=== PATIENT | female | born 1975 | race Caucasian/White ===

== ENCOUNTER → 2017-10-24 11:17 | Outpatient (CLI) | payer OTHER, SELFPAY ==
[2017-10-24 15:56] LABS: Hemoglobin 14.2 g/dl (12.0-15.0); Mean Corp Hgb Conc 34.6 g/gl (32-36); Mean Corpuscular Hgb 32.6 pg (27.0-32.0); Mean Corpuscular Volume 94.3 fL (81-99); Mean Platelet Vol. 12.8 fl (6.2-12.0); Platelet Count 167 K/mm3 (150-450); RBC Distribution Width SD 43.7 fl (35.1-43.9); Red Blood Count 4.35 M/mm3 (4.2-5.4); White Blood Count 5.9 K/mm3 (4.4-11.0)
[2017-10-24 16:12] LABS: Scan Indicated on CBC? Y/N NO
[2017-10-24 16:27] LABS: Vitamin B12 684 pg/mL (211-911)
[2017-10-24 17:30] LABS: ALB/GLOB Ratio 0.9 RATIO (0.9-2.4); AST(SGOT) 15 U/L (15-37); Alanine Aminotransfer ALT/SGPT 16 U/L (13-56); Albumin, Serum 3.8 g/dL (3.2-5.0); Alkaline Phosphatase 56 U/L (45-117); Anion Gap 14 (5-15); BUN 16 mg/dL (7-18); BUN/Creat Ratio 17.3 RATIO (10-20); Calcium,Total 9.3 mg/dL (8.5-10.1); Chloride 104 mmol/L (98-107); Creatinine, Serum 0.93 mg/dL (0.55-1.02); EST Glomerular Filtration Rate 71 mL/min (>60); Est Glom Filt Rate - Afr Amer 85 mL/min (>60); Ferritin 229 ng/mL (8-252); Globulin 4.1 g/dL (2.2-4.2); Glucose 70 mg/dL (74-106); Iron 71 ug/dL (50-170); Potassium 3.8 mmol/L (3.5-5.1); Protein, Total 7.9 g/dL (6.4-8.2); Sodium Level 141 mmol/L (136-145)
[2017-10-27 08:19] LABS: Zinc, Plasma or Serum 73 ug/dL (56-134)
== END ==
PROVIDERS: Family Provider Family Medicine; PCP Family Medicine
DX: K21.9 Gastro-esophageal reflux disease without esophagitis (principal); E61.7 Deficiency of multiple nutrient elements; E66.01 Morbid (severe) obesity due to excess calories
CPT/HCPCS: 36415; 80053; 82607; 82728; 82746; 83540; 83735; 84630; 85027

== ENCOUNTER → 2018-01-24 11:08 | Outpatient (CLI) | payer OTHER, SELFPAY ==
[2018-01-24 13:32] LABS: Hematocrit 41.8 % (37-47); Hemoglobin 14.1 g/dl (12.0-15.0); Mean Corp Hgb Conc 33.7 g/gl (32-36); Mean Corpuscular Hgb 31.9 pg (27.0-32.0); Mean Corpuscular Volume 94.6 fL (81-99); Mean Platelet Vol. 11.8 fl (6.2-12.0); Platelet Count 185 K/mm3 (150-450); RBC Distribution Width CV 12.3 % (11.6-14.6); RBC Distribution Width SD 42.3 fl (35.1-43.9); Red Blood Count 4.42 M/mm3 (4.2-5.4); Scan Indicated on CBC? Y/N NO; White Blood Count 6.6 K/mm3 (4.4-11.0)
[2018-01-24 13:46] LABS: Vitamin B12 689 pg/mL (211-911)
[2018-01-24 13:51] LABS: ALB/GLOB Ratio 0.9 RATIO (0.9-2.4); AST(SGOT) 19 U/L (15-37); Alanine Aminotransfer ALT/SGPT 19 U/L (13-56); Albumin, Serum 3.7 g/dL (3.2-5.0); Alkaline Phosphatase 59 U/L (45-117); Anion Gap 10 (5-15); BUN 17 mg/dL (7-18); Calcium,Total 9.3 mg/dL (8.5-10.1); Chloride 103 mmol/L (98-107); EST Glomerular Filtration Rate 64 mL/min (>60); Est Glom Filt Rate - Afr Amer 78 mL/min (>60); Globulin 4.2 g/dL (2.2-4.2); Glucose 67 mg/dL (74-106); Iron 77 ug/dL (50-170); Magnesium 2.1 mg/dL (1.6-2.6); Potassium 4.1 mmol/L (3.5-5.1); Protein, Total 7.9 g/dL (6.4-8.2); Sodium Level 140 mmol/L (136-145)
[2018-01-26 07:39] LABS: Zinc, WHOLE BLOOD 649 ug/dL (440-860)
--- OUTSIDE RECORDS SUMMARY | 2018-03-12 12:09 | XMS RPT_ITS ---
:1975 Author Organization OHIP Support Name Relationship Address Phone Farrah Schuster Unavailable Unavailable + [employer] brand Unavailable Unavailable + COW Unavailable [address] + [place] [address] JAIR DIXON Unavailable [address] + [place] [address] LandenWalkerFarrah Unavailable Unavailable + SchenKashJair Unavailable Unavailable + Landen Farrah Unavailable Unavailable + SchenKashJair Unavailable Unavailable + COW Unavailable [address] + [place] [address] SCHENKASHJAIR Unavailable [address] + [place] [address] LandenWalkerFarrah Unavailable Unavailable + SchenKashJair Unavailable Unavailable + Landen Farrah Unavailable Unavailable + Schen Jair Unavailable Unavailable + Landen Farrah Unavailable Unavailable + SchenKashJair Unavailable Unavailable + Landen Farrah Unavailable Unavailable + Schen Jair Unavailable Unavailable + Walker Schusteristi Unavailable Unavailable + Schen Jair Unavailable Unavailable + Walker Schusteristi Unavailable Unavailable + Schen, Jair Unavailable Unavailable + Landen, Farrah Unavailable Unavailable + Schen, Jair Unavailable Unavailable + Landen, Farrah Unavailable Unavailable + Schen, Jair Unavailable Unavailable + Landen, Farrah Unavailable Unavailable + Schen, Jair Unavailable Unavailable + Landen, Farrah Unavailable Unavailable + Schen, Jair Unavailable Unavailable + Landen, Farrah Unavailable Unavailable + Schen, Jair Unavailable Unavailable + Landen, Farrah Unavailable Unavailable + Schen, Jair Unavailable Unavailable + Landen, Farrah Unavailable Unavailable + Schen, Jair Unavailable Unavailable + Landen, Farrah Unavailable Unavailable + Schen, Jair Unavailable Unavailable + Landen, Farrah Unavailable Unavailable + Schen, Jair Unavailable Unavailable + Landen, Farrah Unavailable Unavailable + Schen, Jair Unavailable Unavailable + Landen, Farrah Unavailable Unavailable + Schen, Jair Unavailable Unavailable + Landen, Farrah Unavailable Unavailable + Schen, Jair Unavailable Unavailable + Care Team Providers Name Role Phone RODOLFO BARTLETT Referring Unavailable RODOLFO BARTLETT Attending Unavailable RODOLFO BARTLETT Referring Unavailable Cedric Up Attending Unavailable PROVIDER, UNKNOWN Referring Unavailable Ke Clark Primary Care Unavailable Cedric Up Attending Unavailable PROVIDER, UNKNOWN Referring Unavailable Ke Clark Primary Care Unavailable Cedric Up Attending Unavailable PROVIDER, UNKNOWN Referring Unavailable Ke Clark Primary Care Unavailable Anthony Cuadra Attending Unavailable PROVIDER, UNKNOWN Referring Unavailable Eduardo, Ke Primary Care Unavailable Cedric Up Attending Unavailable PROVIDER, UNKNOWN Referring Unavailable Eduardo, Ke Primary Care Unavailable Cedric Up Attending Unavailable PROVIDER, UNKNOWN Referring Unavailable Eduardo, Ke Primary Care Unavailable PROVIDER, UNKNOWN Referring Unavailable Eduardo, Ke Primary Care Unavailable Guillermina Way Attending Unavailable Rumsuzette, Darlin Attending Unavailable PROVIDER, UNKNOWN Referring Unavailable Eduardo, Ke Primary Care Unavailable Rumkvngl, Darlin Attending Unavailable PROVIDER, UNKNOWN Referring Unavailable Eduardo, Ke Primary Care Unavailable PROVIDER, UNKNOWN Referring Unavailable Eduardo, Ke Primary Care Unavailable Anthony Cuadra Attending Unavailable JACKELIN MURILLO RLiz Attending Unavailable PROVIDER, UNKNOWN Referring Unavailable Eduardo, Ke Primary Care Unavailable Cedric Up Attending Unavailable PROVIDER, UNKNOWN Referring Unavailable Eduardo, Ke Primary Care Unavailable CuadraAnthony higginbotham Attending Unavailable PROVIDER, UNKNOWN Referring Unavailable Eduardo, Ke Primary Care Unavailable CuadraAnthony higginbotham Attending Unavailable PROVIDER, UNKNOWN Referring Unavailable Eduardo, Ke Primary Care Unavailable CuadraAnthony higginbotham Attending Unavailable PROVIDER, UNKNOWN Referring Unavailable Eduardo, Ke Primary Care Unavailable CuadraAnthony higginbotham Attending Unavailable PROVIDER, UNKNOWN Referring Unavailable Eduardo, Ke Primary Care Unavailable CuadraAnthony higginbotham Attending Unavailable PROVIDER, UNKNOWN Referring Unavailable Eduardo, Ke Primary Care Unavailable Anthony Cuadra Attending Unavailable PROVIDER, UNKNOWN Referring Unavailable Eduardo, Ke Primary Care Unavailable Darlin Moses Attending Unavailable PROVIDER, UNKNOWN Referring Unavailable Eduardo, Ke Primary Care Unavailable JACKELIN MURILLO Attending Unavailable PROVIDER, UNKNOWN Referring Unavailable Eduardo, Ke Primary Care Unavailable PROVIDER, UNKNOWN Referring Unavailable Eduardo, Ke Primary Care Unavailable Guillermina Way Attending Unavailable Eduardo, Ke Primary Care Unavailable Suzette Murilloa PHARMACY BENEFIT MANAGER-C Attending Unavailable Jackelin Murillo PHARMACY BENEFIT MANAGER-C Referring Unavailable Eduardo, Ke Primary Care Unavailable QUAN SOL Attending Unavailable QUAN SOL Referring Unavailable PROBLEMS PROBLEMS DATE TYPE CONDITION / CODE ATTENDING STATUS SOURCE 01/31/2018 Admitting Morbid (severe) Seamus Guillermina [facility] Diagnosis obesity due to System excess calories / Repository E66.01(ICD-10) 01/31/2018 Admitting Gastro-esophageal Seamus Guillermina [facility] Diagnosis reflux disease System without esophagitis Repository / K21.9(ICD-10) 01/31/2018 Admitting Shortness of breath [facility] Diagnosis / R06.02(ICD-10) System Repository 01/31/[address] 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 System elements / Repository E61.7(ICD-10) 01/31/[address] Admitting Bariatric surgery [address] [facility] status / System Z98.84(ICD-10) Repository 01/31/2018 Admitting Body mass index [address]ill[address] [facility] Diagnosis (BMI) 31.0-31.9, System adult / Repository Z68.31(ICD-10) 02/08/2018 Unknown K21.9 - Jackelin Murillo Active [facility] PHARMACY BENEFIT MANAGER-C [facility] reflux disease [facility] without esophagitis Repository / K21.9(ICD-10) 11/04/2017 Admitting Eating disorder, Crysmell, Active [facility] Diagnosis unspecified / Darlin System F50.9(ICD-10) Repository 11/02/2017 Admitting Body mass index Cuadra, Active [facility] Diagnosis (BMI) 35.0-35.9, [facility] adult / Repository Z68.35(ICD-10) 10/25/2017 Unknown E61.7 - Deficiency QUAN SOL Active [place] of multiple Community nutrient elements / Hospital E61.7(ICD-10) Repository 10/25/2017 Unknown E66.01 - Morbid QUAN SOL Active [facility] (severe) obesity Community due to excess Hospital calories / Repository E66.01(ICD-10) 10/11/2017 Active Unknown / RODOLFO BARTLETT Active [place] [facility](Unknown) [facility] [place] Repository 10/11/2017 Active Encounter for NA Active [place] screening mammogram Clinic Main for malignant [place] neoplasm of breast Repository / Z12.31(ICD-10) 09/28/2017 Admitting Body mass index Cuadra, [facility] Diagnosis (BMI) 38.0-38.9, [facility] adult / Repository Z68.38(ICD-10) 09/20/2017 Admitting Unspecified asthma, Cuadra, [facility] Diagnosis uncomplicated / [facility] J45.909(ICD-10) Repository 09/20/2017 Admitting Irritable bowel Cuadra, Active [facility] Diagnosis syndrome without [facility] diarrhea / Repository K58.9(ICD-10) 09/20/2017 Admitting Body mass index Cuadra, Active [facility] Diagnosis (BMI) 39.0-39.9, [facility] adult / Repository Z68.39(ICD-10) 09/20/2017 Admitting Fatty (change of) Cuadra, Active [facility] Diagnosis liver, not [facility] elsewhere Repository classified / K76.0(ICD-10) 09/13/2017 Admitting Encounter for other Cuadra, Active [facility] Diagnosis preprocedural [facility] examination / Repository Z01.818(ICD-10) 08/31/2017 Admitting Encounter for BRIDLE, JACKELIN Active [facility] Diagnosis screening for R. System diabetes mellitus / Repository Z13.1(ICD-10) 08/31/2017 Admitting Prediabetes / BRIDLE, JACKELIN Active [facility] Diagnosis R73.03(ICD-10) R. System Repository 05/18/2017 Admitting Body mass index Guillermina Way Active [facility] Diagnosis (BMI) 40.0-44.9, System adult / Repository Z68.41(ICD-10) 04/06/2017 Admitting Diaphragmatic BRIDLE, JACKELIN Active [facility] Diagnosis hernia without R. System obstruction or Repository gangrene / K44.9(ICD-10) 04/06/2017 Admitting Dvrtclos of sm int BRIDLE, JACKELIN Active [facility] Diagnosis w/o perforation or R. System abscess w/o Repository bleeding / K57.10(ICD-10) 04/06/2017 Admitting Splenomegaly, not BRIDLE, JACKELIN Active [facility] Diagnosis elsewhere R. System classified / Repository R16.1(ICD-10) 04/06/2017 Admitting Heartburn / BRIDLE, JACKELIN Active [facility] Diagnosis R12(ICD-10) R. System Repository 04/06/2017 Admitting Epigastric pain / BRIDLE, JACKELIN Active [facility] Diagnosis R10.13(ICD-10) R. 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 / [facility] K30(ICD-10) Repository 03/11/2017 Admitting Snoring / Cuadra, Active [facility] Diagnosis R06.83(ICD-10) [facility] Repository PROCEDURES PROCEDURES No Procedure Records FoundRESULTS RESULTS CBC-COMPLETE BLOOD CNT Collected: 01/24/2018 Status: F Source: [place] NO DIFF 11:10 AM [facility] REPOSITORY TYPE CODE TESTS RESULT OUT OF RANGE REFERENCE UNITS LAB L100.1000 4.4-11.0 K/mm3 Normal WBC 6.6 LAB L100.1200 4.2-5.4 M/mm3 Normal RBC 4.42 LAB L100.1300 12.0-15.0 g/dl Normal HGB 14.1 LAB L100.1400 37-47 % Normal HCT 41.8 LAB L100.1500 81-99 fL Normal MCV 94.6 LAB L100.1600 27.0-32.0 pg Normal MCH 31.9 LAB L100.1700 32-36 g/gl Normal MCHC 33.7 LAB L100.1810 11.6-14.6 % Normal RDW CV 12.3 LAB L100.1820 35.1-43.9 fl Normal RDW SD 42.3 LAB L100.1900 150-450 K/mm3 Normal PLT 185 LAB L100.2000 6.2-12.0 fl Normal MPV 11.8 Performed By: #### L100.0500 #### [facility] [address] [place], [address] VITAMIN B12 Collected: 01/24/2018 Status: F Source: [place] 11:10 AM [facility] REPOSITORY TYPE CODE TESTS RESULT OUT OF RANGE REFERENCE UNITS LAB L503.0105 211-911 pg/mL Normal Vitamin B12 689 Performed By: #### L503.0105 #### [facility] [address] [facility] [place], [address] COMPREHENSIVE METABOLIC Collected: 01/24/2018 Status: F Source: [place] PROFIL 11:10 AM [facility] REPOSITORY Order Comment: Is Patient Taking Vitamins or Folic Acid Supplements? Y TYPE CODE TESTS RESULT OUT OF RANGE REFERENCE UNITS LAB L501.0100 74-106 mg/dL Low GLU 67 Result Comment: Please note revised GLUCOSE reference range effective 2017. LAB L501.1000 7-18 mg/dL Normal BUN 17 LAB L501.1100 0.55-1.02 mg/dL Normal CREAT,SERUM 1.00 Result Comment: The validity of the calculated GFR AND GFRAA in patients over 70 years has not been determined. Clinical correlation is essential. LAB L501.1110 >60 mL/min Normal EST GFR 64 Result Comment: Non- GFR Calc LAB L501.1115 >60 mL/min Normal EST GFR - AA 78 Result Comment: GFR Calc LAB L501.1300 10-20 RATIO Normal BUN/CRE 17.0 LAB L501.1500 6.4-8.2 g/dL T Normal PROT 7.9 LAB L501.1800 3.2-5.0 g/dL Normal ALB 3.7 LAB L501.1950 2.2-4.2 g/dL Normal GLOB 4.2 LAB L501.2000 0.9-2.4 RATIO Normal A/G 0.9 LAB L501.2200 8.5-10.1 mg/dL CA Normal 9.3 LAB L501.4100 15-37 U/L Normal AST 19 LAB L501.4305 45-117 U/L Normal ALK P 59 LAB L501.4405 13-56 U/L Normal ALT 19 LAB L501.4600 0.20-1.00 mg/dL T Normal BILI 0.40 LAB L501.5300 136-145 mmol/L NA Normal 140 LAB L501.5600 3.5-5.1 mmol/L K Normal 4.1 LAB L501.5900 98-107 mmol/L CL Normal 103 LAB L501.6100 21.0-32.0 mmol/L Normal CO2 27.0 LAB L501.6200 5-15 Normal GAP 10 Performed By: #### L500.4050, L501.5200, L503.6150, L506.0250 #### [facility] [address] [place], [place], [address] MAGNESIUM Collected: 01/24/2018 Status: F Source: [place] 11:10 AM [facility] REPOSITORY Order Comment: Is Patient Taking Vitamins or Folic Acid Supplements? Y TYPE CODE TESTS RESULT OUT OF RANGE REFERENCE UNITS LAB L501.5200 1.6-2.6 mg/dL Normal MG 2.1 Performed By: #### L500.4050, L501.5200, L503.6150, L506.0250 #### [facility] [address] [place], [address] IRON Collected: 01/24/2018 Status: F Source: [place] 11:10 AM [facility] REPOSITORY Order Comment: Is Patient Taking Vitamins or Folic Acid Supplements? Y TYPE CODE TESTS RESULT OUT OF RANGE REFERENCE UNITS LAB L503.6150 50-170 ug/dL Normal IRON 77 Performed By: #### L500.4050, L501.5200, L503.6150, L506.0250 #### [facility] [address] [place], [address] FOLATES, (FOLIC ACID) Collected: 01/24/2018 Status: F Source: [place] 11:10 AM [facility] REPOSITORY Order Comment: Is Patient Taking Vitamins or Folic Acid Supplements? Y TYPE CODE TESTS RESULT OUT OF RANGE REFERENCE UNITS LAB L506.0250 3.1-55.4 ng/mL Normal FOLATES 20.00 Result Comment: Slight Hemolysis, Result may be falsely increased. Performed By: #### L500.4050, L501.5200, L503.6150, L506.0250 #### [facility] [address] [place], [address] ZINC, WHOLE BLOOD Collected: 01/24/2018 Status: F Source: [place] 11:10 AM [facility] REPOSITORY TYPE CODE TESTS RESULT OUT OF RANGE REFERENCE UNITS LAB L3300.9910 440-860 ug/dL Normal ZINC 649 WHOLE BLD Result Comment: Performed at: - [facility] [address] [id number] Seniour Insight Manager: Jono Pereira MD, Phone: [phone] Performed By: #### L3300.9910 #### [facility] (refer to report for specific site) refer to report for address and phone number CBC-COMPLETE BLOOD CNT Collected: 10/24/2017 Status: F Source: [place] NO DIFF 11:21 AM [facility] REPOSITORY TYPE CODE TESTS RESULT OUT OF RANGE REFERENCE UNITS LAB L100.1000 4.4-11.0 K/mm3 Normal WBC 5.9 LAB L100.1200 4.2-5.4 M/mm3 Normal RBC 4.35 LAB L100.1300 12.0-15.0 g/dl Normal HGB 14.2 LAB L100.1400 37-47 % Normal HCT 41.0 LAB L100.1500 81-99 fL Normal MCV 94.3 LAB L100.1600 27.0-32.0 pg High MCH 32.6 LAB L100.1700 32-36 g/gl Normal MCHC 34.6 LAB L100.1810 11.6-14.6 % Normal RDW CV 13.0 LAB L100.1820 35.1-43.9 fl Normal RDW SD 43.7 LAB L100.1900 150-450 K/mm3 Normal PLT 167 LAB L100.2000 6.2-12.0 fl High MPV 12.8 Performed By: #### L100.0500 #### [facility] [address] [facility] [place], [address] VITAMIN B12 Collected: 10/24/2017 Status: F Source: [place] 11:21 AM [facility] REPOSITORY TYPE CODE TESTS RESULT OUT OF RANGE REFERENCE UNITS LAB L503.0105 211-911 pg/mL Normal Vitamin B12 684 Performed By: #### L503.0105 #### [facility] [address] [facility] [place], [address] COMPREHENSIVE METABOLIC Collected: 10/24/2017 Status: F Source: [facility] 11:21 AM [facility] REPOSITORY Order Comment: Is Patient Taking Vitamins or Folic Acid Supplements? Y TYPE CODE TESTS RESULT OUT OF RANGE REFERENCE UNITS LAB L501.0100 74-106 mg/dL Low GLU 70 Result Comment: Please note revised GLUCOSE reference range effective 2017. LAB L501.1000 7-18 mg/dL Normal BUN 16 LAB L501.1100 0.55-1.02 mg/dL Normal CREAT,SERUM 0.93 Result Comment: The validity of the calculated GFR AND GFRAA in patients over 70 years has not been determined. Clinical correlation is essential. LAB L501.1110 >60 mL/min Normal EST GFR 71 Result Comment: Non- GFR Calc LAB L501.1115 >60 mL/min Normal EST GFR - AA 85 Result Comment: GFR Calc LAB L501.1300 10-20 RATIO Normal BUN/CRE 17.3 LAB L501.1500 6.4-8.2 g/dL T Normal PROT 7.9 LAB L501.1800 3.2-5.0 g/dL Normal ALB 3.8 LAB L501.1950 2.2-4.2 g/dL Normal GLOB 4.1 LAB L501.2000 0.9-2.4 RATIO Normal A/G 0.9 LAB L501.2200 8.5-10.1 mg/dL CA Normal 9.3 LAB L501.4100 15-37 U/L Normal AST 15 LAB L501.4305 45-117 U/L Normal ALK P 56 LAB L501.4405 13-56 U/L Normal ALT 16 LAB L501.4600 0.20-1.00 mg/dL T Normal BILI 0.40 LAB L501.5300 136-145 mmol/L NA Normal 141 LAB L501.5600 3.5-5.1 mmol/L K Normal 3.8 LAB L501.5900 98-107 mmol/L CL Normal 104 LAB L501.6100 21.0-32.0 mmol/L Normal CO2 23.0 LAB L501.6200 5-15 Normal GAP 14 Performed By: #### L500.4050, L501.5200, L503.6150, L503.6550, L506.0250 #### [facility] [address] [facility] [place], [place], [id number] MAGNESIUM Collected: 10/24/2017 Status: F Source: [place] 11:21 AM [facility] REPOSITORY Order Comment: Is Patient Taking Vitamins or Folic Acid Supplements? Y TYPE CODE TESTS RESULT OUT OF RANGE REFERENCE UNITS LAB L501.5200 1.6-2.6 mg/dL Normal MG 2.0 Performed By: #### L500.4050, L501.5200, L503.6150, L503.6550, L506.0250 #### [facility] [address] [facility] [place], [place], [address] IRON Collected: 10/24/2017 Status: F Source: [place] 11:21 AM [facility] REPOSITORY Order Comment: Is Patient Taking Vitamins or Folic Acid Supplements? Y TYPE CODE TESTS RESULT OUT OF RANGE REFERENCE UNITS LAB L503.6150 50-170 ug/dL Normal IRON 71 Performed By: #### L500.4050, L501.5200, L503.6150, L503.6550, L506.0250 #### [facility] [address] [place], [place], [address] ([address]) FERRITIN Collected: 10/24/2017 Status: F Source: [place] 11:21 AM [facility] REPOSITORY Order Comment: Is Patient Taking Vitamins or Folic Acid Supplements? Y TYPE CODE TESTS RESULT OUT OF RANGE REFERENCE UNITS LAB L503.6550 8-252 ng/mL Normal FERRITIN 229 Performed By: #### L500.4050, L501.5200, L503.6150, L503.6550, L506.0250 #### [facility] [address] [place], [address] FOLATES, (FOLIC ACID) Collected: 10/24/2017 Status: F Source: [place] 11:21 AM [facility] REPOSITORY Order Comment: Is Patient Taking Vitamins or Folic Acid Supplements? Y TYPE CODE TESTS RESULT OUT OF RANGE REFERENCE UNITS LAB L506.0250 3.1-55.4 ng/mL Normal FOLATES 24.90 Performed By: #### L500.4050, L501.5200, L503.6150, L503.6550, L506.0250 #### [facility] [address] [place], [place], [address] ZINC, PLASMA OR Collected: 10/24/2017 Status: F Source: [place] 11:21 AM [facility] REPOSITORY Order Comment: FAX TO [id number] TYPE CODE TESTS RESULT OUT OF RANGE REFERENCE UNITS LAB L3300.9900 56-134 ug/dL Normal ZINC 73 Plasma/Ser Result Comment: Detection Limit = 5 Performed at: - [facility] [address] [id number] [employer] Insight Manager: Kaela Bell MD, Phone: [phone] Performed By: #### L3300.9900 #### [facility] (refer to report for specific site) refer to report for address and phone number CNOV Observed: 10/11/2017 Status: COMPLETED Source: [place] 9:20 AM [facility] [place] REPOSITORY Office Visit (WOOB) HAILEE DIXON ([id number]) 1975 F Date Time Provider Department 10/11/17 9:20 AM RODOLFO BARTLETT During your visit today, we recorded the following information about you: Blood pressure Weight Height 104/66 113.7 kg 1.76 m Rodolfo Bartlett MD 10/11/2017 10:00 AM Signed Hailee Dixon is a 42 year old who presents for her annual gynecologic exam without complaints. Menses: no menses - continuous OCPs. Contraception: oral contraceptives HPV vaccine: N/A Last Pap: 2014 normal HPV: negative History of abnormal pap: No Last mammogram: today Obstetric History T0 L0 SAB0 TAB0 Ectopic0 Multiple0 Live Births0 PAST MEDICAL HISTORY Diagnosis Date - Allergic rhinitis, cause unspecified Allergic rhinitis - Asthma - IBS (irritable bowel syndrome) PAST SURGICAL HISTORY Procedure Laterality Date - TONSILLECTOMY AND ADENOIDECTOMY HX 1984 FAMILY HISTORY Problem Relation Age of Onset - Cancer Mother T-Cell Lymphoma - Arthritis Father - Diabetes Maternal Grandmother - Thyroid Sister Hypothyroidism - other (Depression/Anxiety) Sister - Diabetes Maternal Uncle SOCIAL HISTORY Social History Substance Use Topics - Smoking status: Never Smoker - Smokeless tobacco: Never Used - Alcohol use Yes Comment: Occasionally REVIEW OF SYSTEMS Abdomen: No abdominal pain, nausea, vomiting, diarrhea, or constipation. No bloating, early satiety, indigestion, or increased flatulence. Bladder: No dysuria, gross hematuria, urinary frequency, urinary urgency, or incontinence. Breast: No breast lumps, nipple d/c, overlying skin changes, redness or skin retraction. Allergies and current medication updated:Yes EXAM: There were no vitals taken for this visit. GENERAL: pleasant, female in no apparent distress BREAST: soft, non-tender, symmetric, no dominant mass, normal nipple-areolar complex, no lymphadenopathy and no nipple discharge CHEST: Normal inspiratory effort ABDOMEN: soft, non-tender and no masses PELVIC: external genitalia normal, normal Bartholin's glands, urethra, [place]'s glands, no vulvar lesions, no cervical lesions, good vaginal support, physiologic discharge present, normal appearing perineal body and perianal region BIMANUAL: uterus normal size, shape and consistency, no adnexal masses and non-tender RECTOVAGINAL: deferred. NEURO: alert and oriented x3,exam grossly non-focal EXTREMITIES: normal ASSESSMENT/PLAN: 1) Health maintenance: Pap/HPV up to date. Mammogram today Nutrition, exercise and routine health maintenance exams reviewed. 2) Contraception: oral contraceptives - reviewed R/B/A in women over 35 including increased CV/stroke risks 3) Follow up one year or sooner as needed Rodolfo Bartlett MD Referring Provider: RODOLFO BARTLETT [[id number]] Allergies As of Date: 10/11/2017 Noted Allergy Reaction SEASONAL ALLERGIES 08/28/2014 9 - Itching 12 - Shortness of Breath Comments: Dust mites, Dogs, Cats, Tree's, and Grasses. Date Reviewed: 10/11/2017 Reviewed by: Rodolfo Bartlett - Fully Assessed Reason for Visit: Yearly Exam [187] Primary Visit Diagnosis:Encounter for gynecological examination without abnormal finding [Z01.419] Other Visit Diagnosis:Encounter for screening mammogram for malignant neoplasm of breast [Z12.31] Order(s):[facility] SCREENING [[id number]] Order #: [id number] FUTURE Drospirenone-Ethinyl Estradiol (ALEK, 28,) 3-0.02 mg per tabletTake 1 tablet by mouth once daily.Disp: 1 PackageRfl: 14 Prescriptions as of 10/11/2017 Sig: ACTIGALL ORAL Take by mouth. PRILOSEC ORAL Take by mouth. VITAMIN B-12 ORAL Take by mouth. Once weekly CALCIUM ORAL Take by mouth. DROSPIRENONE 3 MG-ETHINYL EST* Take 1 tablet by mouth once d* BIOTIN ORAL Take by mouth. FLAXSEED OIL 1,000 MG CAPSULE Take by mouth once daily. FLUTICASONE 100 MCG-SALMETERO* Inhale 1 Puff as instructed t* NASONEX NASAL Use in the nose. PROAIR HFA INHALATION Inhale as instructed. DICYCLOMINE 10 MG CAPSULE Take 10 mg by mouth before me* CETIRIZINE 10 MG TABLET Take 10 mg by mouth as needed. MULTIVITAMIN ORAL Take by mouth. CHOLECALCIFEROL (VITAMIN D3) * Take by mouth. Problem List As Of Date 10/11/2017 Noted Resolved Galactorrhea [N64.3] INVALID FOR* Prescriptions ordered this encounter Disp Refills Start End DROSPIRENONE 3 MG-ETHINYL ESTRADIOL * 1 Pa* 14 10/11/2017 Route: ORAL Sig: Take 1 tablet by mouth once daily. Medications Discontinued During This Encounter Phentermine HCl (ADIPEX-P) 37.5 mg t* 10/11/2017 Class: Historical Med Route: ORAL Sig: Take 37.5 mg by mouth. Disc: Discontinued by Patient Drospirenone-Ethinyl Estradiol (ALEK,* 1 Pa* 14 09/24/2016 10/11/2017 Route: ORAL Sig: Take 1 tablet by mouth once daily. Disc: Reason for discontinue is not on file. Disposition: Return in about 1 year (around 10/11/2018) for Routine KEYBOARD TEACHER exam. Follow-up and Disposition History Recorded Encounter Status:Closed by RODOLFO BARTLETT MD on 10/11/17 CNCO Observed: 10/11/2017 Status: COMPLETED Source: [place] 9:18 AM [facility] [place] REPOSITORY [facility] ID: [id number] Author: Mammography Coordinator Service: (none) Author Type: Physician Type: Letter Filed: 10/12/2017 11:31 PM Note Text: October 11, 2017 PID: [id number] Hailee Dixon [address] [place] [address] Dear Ms. Dixon, We are pleased to inform you that the results of your recent breast imaging exam on 10/11/2017 are normal. Early detection of cancer is very important. We also understand recommendations regarding breast cancer screening are controversial. Please discuss with your primary care provider which strategy is best for you and whether a mammogram is right for you. Your imaging studies and report will be kept on file at [facility] as part of your permanent medical record and are available for your continuing care. Thank you for allowing us to help in meeting your health care needs. Sincerely, Dr. Goodwin Interpreting Radiologist [facility] (Normal over 40) [facility] SCREENING Observed: 10/11/2017 Status: F Source: [place] 9:13 AM [facility] REPOSITORY * * *Final Report* * * DATE OF EXAM: Oct 11 2017 9:13AM LUDAW [id number] - [facility] SCREENING / PROCEDURE REASON: Encounter for screening mammogram for malignant neoplasm of breast * * * * Physician Interpretation * * * * RESULT: #[id number] - [facility] SCREENING BILATERAL DIGITAL SCREENING MAMMOGRAM WITH CAD: 10/11/2017 HISTORY: Encounter For Screening Mammogram For Malignant Neoplasm Of Breast /Screening Mammogram - patient reports NO breast symptoms /Priors available for comparison. RESULT: TECHNIQUE: The study was acquired using full field digital technology and interpreted from soft copy. Current study was also evaluated with a Computer Aided Detection (CAD). Comparison is made to exams dated: 09/24/2016 mammogram, 09/22/2015 mammogram - [facility], and 09/17/2014 mammogram - [facility]. There are scattered fibroglandular elements in both breasts. No significant masses, calcifications, or other findings are seen in either breast. There has been no significant interval change. IMPRESSION: NEGATIVE There is no mammographic evidence of malignancy.A 1 year screening mammogram is recommended. Hailee vivas/[place]:10/11/2017 09:18:35 Apprentice Jockey: Sia LATHAM (R)([place]), [facility] letter sent: Normal over 40 Mammogram BI-RADS: 1 Negative Fire Fighting Equipment Specialist: [place] Transcribe Date/Time: Oct 11 2017 8:56A Dictated by: HAILEE GOODWIN MD This examination was interpreted and the report reviewed and electronically signed by: HAILEE GOODWIN MD on Oct 11 2017 9:18AM EST [id number] PROGRESS Observed: 10/11/2017 Status: COMPLETED Source: [place] 9:04 AM [facility] [place] REPOSITORY HNO ID: [id number] Author: Rodolfo Bartlett Service: (none) Author Type: Physician Type: Progress Notes Filed: 10/11/2017 10:00 AM Note Text: Hailee Dixon is a 42 year old who presents for her annual gynecologic exam without complaints. Menses: no menses - continuous OCPs. Contraception: oral contraceptives HPV vaccine: N/A Last Pap: 2014 normal HPV: negative History of abnormal pap: No Last mammogram: today Obstetric History T0 L0 SAB0 TAB0 Ectopic0 Multiple0 Live Births0 PAST MEDICAL HISTORY Diagnosis Date - Allergic rhinitis, cause unspecified Allergic rhinitis - Asthma - IBS (irritable bowel syndrome) PAST SURGICAL HISTORY Procedure Laterality Date - TONSILLECTOMY AND ADENOIDECTOMY HX 1984 FAMILY HISTORY Problem Relation Age of Onset - Cancer Mother T-Cell Lymphoma - Arthritis Father - Diabetes Maternal Grandmother - Thyroid Sister Hypothyroidism - other (Depression/Anxiety) Sister - Diabetes Maternal Uncle SOCIAL HISTORY Social History Substance Use Topics - Smoking status: Never Smoker - Smokeless tobacco: Never Used - Alcohol use Yes Comment: Occasionally REVIEW OF SYSTEMS Abdomen: No abdominal pain, nausea, vomiting, diarrhea, or constipation. No bloating, early satiety, indigestion, or increased flatulence. Bladder: No dysuria, gross hematuria, urinary frequency, urinary urgency, or incontinence. Breast: No breast lumps, nipple d/c, overlying skin changes, redness or skin retraction. Allergies and current medication updated:Yes EXAM: There were no vitals taken for this visit. GENERAL: pleasant, female in no apparent distress BREAST: soft, non-tender, symmetric, no dominant mass, normal nipple-areolar complex, no lymphadenopathy and no nipple discharge CHEST: Normal inspiratory effort ABDOMEN: soft, non-tender and no masses PELVIC: external genitalia normal, normal Bartholin's glands, urethra, [place]'s glands, no vulvar lesions, no cervical lesions, good vaginal support, physiologic discharge present, normal appearing perineal body and perianal region BIMANUAL: uterus normal size, shape and consistency, no adnexal masses and non-tender RECTOVAGINAL: deferred. NEURO: alert and oriented x3,exam grossly non-focal EXTREMITIES: normal ASSESSMENT/PLAN: 1) Health maintenance: Pap/HPV up to date. Mammogram today Nutrition, exercise and routine health maintenance exams reviewed. 2) Contraception: oral contraceptives - reviewed R/B/A in women over 35 including increased CV/stroke risks 3) Follow up one year or sooner as needed Rodolfo Bartlett MD RF UPPER GI W/ AIR Observed: 09/21/2017 Status: F Source: [facility] CONTRAST W/ KUB 10:26 AM SYSTEM REPOSITORY Patient Name: HAILEE DIXON Fluoroscopy Exam Date/Time 09/21/2017 07:35:22 EDT Exam RF Upper GI w/ Air Contrast + KUB Ordering Physician LUIS MAYES Accession Number [id number] CTP4 Codes 96208 () Reason For Exam s/p sleeve Report GASTROGRAFIN UGI SERIES: CLINICAL INDICATIONS: Post op day one gastric sleeve, evaluate for leak. COMPARISON: 04/06/2017. TECHNIQUE: Gastrografin was administered orally in the upright position. FLUOROSCOPY TIME: 0.7 minutes. 18 fluoroscopic spot images were obtained. FINDINGS: Gastrografin was administered in the upright position. The esophagus is of normal course and caliber. Laparoscopic sleeve gastrectomy ( LSG ) is seen with longitudinal resection of the fundus, body, and antrum of the stomach. Approximately two thirds gastrectomy was done, leaving a remaining tubular stomach conduit, seen on fluoroscopy. There is no extravasation or leaks. There is prompt emptying of the conduit. IMPRESSION: Changes consistent with sleeve gastrectomy. No extravasation or obstruction. Report Dictated on Final Dictated: 09/21/2017 10:24 am Dictating Physician: ONEAL FIGUEREDO Signed Date and Time: 09/21/2017 11:46 am Signed by: ONEAL FIGUEREDO Transcribed Date and Time: 09/21/2017 10:26 HEMOGRAM Collected: 09/20/2017 Status: F Source: [facility] 11:57 PM SYSTEM REPOSITORY TYPE CODE TESTS RESULT OUT OF RANGE REFERENCE UNITS LAB IWBC 3.6-10.7 10*3/uL High WBC 12.7 LAB RBC 3.80-5.20 10*6/uL RBC Normal 4.27 LAB HGB 11.7-16.0 g/dL Normal Hemoglobin 13.9 LAB HCT 35.0-47.0 % Normal Hematocrit 39.5 LAB MCV 79.0-98.0 fL MCV Normal 92.4 LAB MCH 26.0-34.0 pg MCH Normal 32.5 LAB MCHC 32.0-36.0 % MCHC Normal 35.2 LAB RDW 11.5-14.5 % RDW Normal 12.6 LAB PLT 140-440 10*3/uL Platelet Normal 204 LAB MPV 7.4-10.4 fL MPV Normal 10.2 Performed By: #### AMY, BMP3, MG3 #### [facility] [address] [place] [phone] BASIC METABOLIC PANEL Collected: 09/20/2017 Status: F Source: [facility] 11:57 PM SYSTEM REPOSITORY TYPE CODE TESTS RESULT OUT OF RANGE REFERENCE UNITS LAB NA3 137-145 mmol/L Sodium Normal 140 LAB K3 3.5-5.1 mmol/L Normal Potassium 4.3 LAB CL3 98-107 mmol/L High Chloride 111 LAB CO23 22-30 mmol/L Carbon Normal Dioxide 22 LAB ANIN3 NA Anion Gap 7 LAB GLUC3 70-100 mg/dL High Glucose 107 LAB BUN3 7-20 mg/dL Urea Normal Nitrogen 8 LAB CRET3 0.52-1.25 mg/dL Normal Creatinine 0.76 LAB GF3BR >60 mL/min eGFR > 60.0 LAB GF3WR >60 mL/min eGFR OTHER > 60.0 Result Comment: Source- MDRD equation with creatinine calibration to IDMS(NKDEP) eGFR not recommended for drug dose adjustment LAB CA3 8.4-10.4 mg/dL Normal Calcium 9.1 Performed By: #### LUIZ REYES3, MG3 #### [facility] [address] [place] [phone] MAGNESIUM Collected: 09/20/2017 Status: F Source: [facility] 11:57 PM SYSTEM REPOSITORY TYPE CODE TESTS RESULT OUT OF RANGE REFERENCE UNITS LAB MG3 1.6-2.3 mg/dL Normal Magnesium 2.1 Performed By: #### AMY, BMP3, MG3 #### [facility] [address] [place] [phone] HEMOGRAM Collected: 09/20/2017 Status: F Source: [facility] 9:44 AM SYSTEM REPOSITORY TYPE CODE TESTS RESULT OUT OF RANGE REFERENCE UNITS LAB IWBC 3.6-10.7 10*3/uL High WBC 12.3 LAB RBC 3.80-5.20 10*6/uL RBC Normal 4.40 LAB HGB 11.7-16.0 g/dL Normal Hemoglobin 14.1 LAB HCT 35.0-47.0 % Normal Hematocrit 41.1 LAB MCV 79.0-98.0 fL MCV Normal 93.3 LAB MCH 26.0-34.0 pg MCH Normal 32.1 LAB MCHC 32.0-36.0 % MCHC Normal 34.4 LAB RDW 11.5-14.5 % RDW Normal 12.6 LAB PLT 140-440 10*3/uL Platelet Normal 165 LAB MPV 7.4-10.4 fL MPV Normal 9.4 Performed By: #### LUIZ REYES3 #### [facility] [address] [place] [address] BASIC METABOLIC PANEL Collected: 09/20/2017 Status: F Source: [facility] 9:44 AM SYSTEM REPOSITORY TYPE CODE TESTS RESULT OUT OF RANGE REFERENCE UNITS LAB NA3 137-145 mmol/L Sodium Normal 139 LAB K3 3.5-5.1 mmol/L Normal Potassium 4.0 LAB CL3 98-107 mmol/L High Chloride 109 LAB CO23 22-30 mmol/L Carbon Normal Dioxide 22 LAB ANIN3 NA Anion Gap 8 LAB GLUC3 70-100 mg/dL High Glucose 200 LAB BUN3 7-20 mg/dL Urea Normal Nitrogen 9 LAB CRET3 0.52-1.25 mg/dL Normal Creatinine 0.82 LAB GF3BR >60 mL/min eGFR > 60.0 LAB GF3WR >60 mL/min eGFR OTHER > 60.0 Result Comment: Source- MDRD equation with creatinine calibration to IDMS(NKDEP) eGFR not recommended for drug dose adjustment LAB CA3 8.4-10.4 mg/dL Normal Calcium 8.5 Performed By: #### SANJU REYES #### [facility] [address] [phone] Observed: 09/20/2017 Status: F Source: [facility] SURGICAL PATHOLOGY 8:32 AM SYSTEM REPOSITORY [id number] [facility] PATHOLOGY AND LABORATORY MEDICINE [address] [place] [address] FINAL SURGICAL PATHOLOGY REPORT NAME: HAILEE DIXON : 1975 42 Y Grace CASE NO.: [id number] LOCATION: [id number] PROCEDURE 09/20/2017 DATE: SURGEON: TRAMAINE SINGLETARY M.D. RECEIVED 09/20/2017 DATE: ATTENDING: TRAMAINE SINGLETARY M.D. REPORT DATE: 09/21/2017 COPIES TO: DIAGNOSIS: A. LIVER WEDGE BIOPSY - MILD STEATOSIS (GRADE 1) Microscopic Description: Sections demonstrate an intact liver architecture with mild macro and microvesicular steatosis (5%). There is no evidence of ballooning degeneration, Luisa's hyaline, or lobular activity. The portal tracts contain all normal structures and no inflammatory infiltrate. Special stains (iron and trichrome) are negative for increased iron storage and fibrosis, respectively. B. STOMACH, PARTIAL GASTRECTOMY - MILD CHRONIC INACTIVE GASTRITIS. Comment: Evaluation of the H&E-stained sections shows no evidence of Helicobacter pylori or any morphologic features to suggest infection with the organism; as such, further studies for Helicobacter are not indicated. There is no evidence of intestinal metaplasia, dysplasia or malignancy. Reference: Martínez LUCERO et al. Appropriate use of special stains for identifying Helicobacter pylori: Recommendations from the [employer] G[employer]. Am J Surg Pathol. 2013 Nov;37(11):e12-22. JAW/SHERMAN <Sign Out Dr. Bowie> HALIE ARIAS M.D. CLINICAL INFORMATION: Morbid obesity SPECIMEN: (A) LIVER NEEDLE OR WEDGE BIOPSY, MEDICAL (B) STOMACH, PARTIAL GASTRECTOMY GROSS DESCRIPTION: A. Liver biopsy Received in formalin are two red-brown tissue segments 0.5 cm each. Submitted in toto. (2 ns, 1) B. Stomach Received in formalin is a portion of gastric tissue consistent with greater curvature measuring 15 x 3 x 2 cm. The serosal surface is pink-bhatti with focal adherent fibrofatty soft tissue tags. There is a row of metallic carter present along one entire edge. Upon opening the specimen it contains thick, hemorrhagic, mucoid contents. The mucosa is granular, red-ortiz with prominent rugal folds. No polyps or ulcers are identified. International Project Manager sections are submitted in two cassettes. (bits ss, 2) JCK/SHERMAN Disclaimer: The following statement applies to all immunohistochemistry, in situ hybridization, molecular studies, and immunofluorescence testing. The use of one or more reagents in the above tests is regulated as an analyte specific reagent (ASR). These tests were developed and their performance characteristics determined by the clinical laboratories of [facility]. They have not been cleared by the US Food and Drug Administration (FDA). The FDA has determined that such clearance or approval is not necessary. All the above immunostains were performed on paraffin embedded tissue. Appropriate positive and negative controls (where applicable) were run in parallel with the patient's specimen; these controls showed expected staining pattern, with acceptable intensity of staining. Immunohistochemical assays have not been validated on decalcified tissues. Results should be interpreted with caution given the raised possibility of false negativity on decalcified specimens. Professional Performing Location: [address] [address]. DEPARTMENT OF PATHOLOGY AND LABORATORY MEDICINE [place], [place] [address] HCG,URINE QUAL Collected: 09/20/2017 Status: F Source: [facility] 6:23 AM SYSTEM REPOSITORY TYPE CODE TESTS RESULT OUT OF REFERENCE UNITS RANGE LAB HCGUR Negative NA Negative HCG,Urine Qual Result Comment: is the most common reason for HCG in urine, although choriocarcinoma, hydatidiform mole, and certain nontropho- blastic malignancies also result in detectable urinary HCG levels. Sensitivity = 20mIU/mL. Performed By: #### HCGUR #### [employer] [address] [place] [phone] CR CHEST PA/LAT Observed: 08/31/2017 Status: F Source: [facility] 1:09 PM SYSTEM REPOSITORY Patient Name: HAILEE DIXON Diagnostic Radiology Exam Date/Time 08/31/2017 12:18:40 EDT Exam CR Chest PA/LAT Ordering Physician YADIRA MURILLO LEISA R. Accession Number [id number] CPT4 Codes 74440 () Reason For Exam Pre Op Report CLINICAL INFORMATION: Preop evaluation. Gastroesophageal reflux disease without esophagitis. Shortness of breath on exertion. Frontal and lateral views of the chest were obtained. No old examinations were available for comparison at time of dictation. No acute pulmonary disease is noted. The cardiovascular silhouette is within normal limits. There are no pleural effusions. Mild endplate degenerative changes of the spine. IMPRESSION: No acute pulmonary disease. Report Dictated on Final Dictated: 08/31/2017 1:09 pm Dictating Physician: DENA PARRISH Signed Date and Time: 08/31/2017 1:09 pm Signed by: DENA PARRISH Transcribed Date and Time: 08/31/2017 1:09 HEMOGRAM Collected: 08/31/2017 Status: F Source: [facility] 12:14 PM SYSTEM REPOSITORY TYPE CODE TESTS RESULT OUT OF RANGE REFERENCE UNITS LAB IWBC 3.6-10.7 10*3/uL WBC Normal 8.9 LAB RBC 3.80-5.20 10*6/uL RBC Normal 4.54 LAB HGB 11.7-16.0 g/dL Normal Hemoglobin 14.8 LAB HCT 35.0-47.0 % Normal Hematocrit 42.3 LAB MCV 79.0-98.0 fL MCV Normal 93.3 LAB MCH 26.0-34.0 pg MCH Normal 32.6 LAB MCHC 32.0-36.0 % MCHC Normal 34.9 LAB RDW 11.5-14.5 % RDW Normal 12.3 LAB PLT 140-440 10*3/uL Platelet Normal 191 LAB MPV 7.4-10.4 fL MPV Normal 9.7 Performed By: #### HEMOG, BMP3, ALB3, HA1C2 #### [facility] [address] [place] [phone] BASIC METABOLIC PANEL Collected: 08/31/2017 Status: F Source: [facility] 12:14 PM SYSTEM REPOSITORY TYPE CODE TESTS RESULT OUT OF RANGE REFERENCE UNITS LAB NA3 137-145 mmol/L Sodium Normal 140 LAB K3 3.5-5.1 mmol/L Normal Potassium 4.5 LAB CL3 98-107 mmol/L Chloride Normal 105 LAB CO23 22-30 mmol/L Carbon Normal Dioxide 22 LAB ANIN3 NA Anion Gap 12 LAB GLUC3 70-100 mg/dL Low Glucose 64 LAB BUN3 7-20 mg/dL Urea Normal Nitrogen 11 LAB CRET3 0.52-1.25 mg/dL Normal Creatinine 0.86 LAB GF3BR >60 mL/min eGFR > 60.0 LAB GF3WR >60 mL/min eGFR OTHER > 60.0 Result Comment: Source- MDRD equation with creatinine calibration to IDMS(NKDEP) eGFR not recommended for drug dose adjustment LAB CA3 8.4-10.4 mg/dL Normal Calcium 9.7 Performed By: #### HEMOG, BMP3, ALB3, HA1C2 #### [facility] [address] [place] [phone] ALBUMIN, SERUM Collected: 08/31/2017 Status: F Source: [facility] 12:14 PM SYSTEM REPOSITORY TYPE CODE TESTS RESULT OUT OF RANGE REFERENCE UNITS LAB ALB3 3.5-5.0 g/dL Normal Albumin, 4.6 Serum Performed By: #### HEMOG, BMP3, ALB3, HA1C2 #### [facility] [address] [place] [phone] HEMOGLOBIN A1C Collected: 08/31/2017 Status: F Source: [facility] 12:14 PM SYSTEM REPOSITORY TYPE CODE TESTS RESULT OUT OF RANGE REFERENCE UNITS LAB A1C2 4.0-5.7 % Normal Hemoglobin A1C 4.8 Result Comment: --HgbA1C levels may not be accurate in patients who have renal disease, received recent blood transfusions, are anemic, or who have dyshemoglobinemia. LAB EAG2 mg/dL Estimated Avg Glucose 91 Performed By: #### HEMOG, BMP3, ALB3, HA1C2 #### [employer] [address] [place] [phone] RF UGI W/O KUB W/ Observed: 04/06/2017 Status: F Source: [facility] OR W/O DELAY [facility] 11:10 AM SYSTEM REPOSITORY Patient Name: HAILEE DIXON Fluoroscopy Exam Date/Time 04/06/2017 09:15:00 EST Exam RF UGI w/o KUB and w/ or w/o Delay Flm Ordering Physician YADIRA MURILLO LEISA R. Accession Number [id number] CTP4 Codes 24882 () Reason For Exam heartburn, morbid obesity Report AIR CONTRAST UGI SERIES CLINICAL INDICATIONS: Preoperative evaluation for bariatric surgery. Gastroesophageal reflux. COMPARISON: None. TECHNIQUE: Biphasic exam performed with barium and air. FLUOROSCOPY TIME: 1.27 minutes FLUOROSCOPIC IMAGES: 26 fluoroscopic spot images were obtained. FINDINGS: Barium and air are administered. The esophagus is studied in the upright as well as the horizontal positions. The esophagus is normal in course and caliber. There is a small hiatal hernia. No free gastroesophageal reflux is seen at this time. Barium flows freely from the esophagus into the stomach. The stomach and duodenum show normal mucosal pattern, with no discrete ulcer or mass. A diverticulum is noted in the proximal jejunum. IMPRESSION: 1. Small hiatal hernia. 2. Jejunal diverticulum. Report Dictated on Final Dictating Physician: MD GUERRERO NICHOLAS Signed Date and Time: 04/06/2017 11:19 am Signed by: MD GUERRERO NICHOLAS Transcribed Date and Time: 04/06/2017 11:20 US ABDOMEN COMPLETE Observed: 04/06/2017 Status: F Source: [facility] 9:10 AM SYSTEM REPOSITORY Patient Name: HAILEE DIXON Ultrasound Exam Date/Time 04/06/2017 08:53:39 EST Exam US Abdomen Complete Ordering Physician YADIRA MURILLO LEISA R. Accession Number [id number] CPT4 Codes 07154 () Reason For Exam mild heartburn, sob, morbid obesity Report Clinical Information: Epigastric pain. Heartburn. COMPARISON: None available. FINDINGS: Examination is somewhat limited by body habitus. There is a normally distended gallbladder without evidence of stones or wall thickening. No fluid is seen around the gallbladder. No sonographic Moss sign was reported. The common bile duct measures 3 mm which is within normal limits. The liver is grossly unremarkable in size and echogenicity without evidence of mass or intrahepatic biliary dilatation. Sonographic penetration is limited. The visualized portions of the pancreas appear grossly within normal limits. The distal pancreas is not well visualized due to bowel gas. There is no ascites. The kidneys are grossly unremarkable in size and echogenicity. No hydronephrosis or renal calculus is noted. The right and left kidneys measure 10.7 x 4.8 x 4.4 cm and 11.0 x 4.5 x 5.5 cm respectively. There is mild splenomegaly with a maximum splenic dimension of 13.6 cm. No splenic lesion is noted. No gross sonographic abnormality of the visualized portions of the abdominal aorta or inferior vena cava is identified. Impression: Limited examination. Mild splenomegaly. Report Dictated on Final Dictating Physician: MD MCKEON JOE M Signed Date and Time: 04/06/2017 9:13 am Signed by: MD MCKEON JOE M Transcribed Date and Time: 04/06/2017 9:14 Observed: 03/11/2017 Status: F Source: [facility] SURGICAL PATHOLOGY 11:29 AM SYSTEM REPOSITORY [id number] [facility] PATHOLOGY AND LABORATORY MEDICINE [address] [place] [id number] SUPPLEMENTAL SURGICAL PATHOLOGY REPORT NAME: HAILEE DIXON : 1975 41 Y F BILLING NO.: [id number] LOCATION: [id number] PROCEDURE 03/11/2017 DATE: SURGEON: TRAMAINE SINGLETARY M.D. RECEIVED 03/11/2017 DATE: ATTENDING: TRAMAINE SINGLETARY M.D. REPORT DATE: 03/14/2017 COPIES TO: DIAGNOSIS: ANTRAL MUCOSA SHOWING MODERATE CHRONIC FOCALLY ACTIVE GASTRITIS. DUE TO THE DEGREE OF INFLAMMATION, AN IMMUNOSTAIN FOR H. PYLORI WILL BE PERFORMED WITH RESULTS GIVEN IN A SUPPLEMENTAL REPORT. NO EVIDENCE OF INTESTINAL METAPLASIA, DYSPLASIA OR MALIGNANCY. SUPPLEMENTAL REPORT: (03/14/2017) An immunostain for H. pylori was performed in association with adequate controls. No H. pylori organisms identified. / DINAH/KMS1 <Sign Out Dr. Bowie> KAELA ESPINAL M.D. CLINICAL INFORMATION: Gastroesophageal reflux disease SPECIMEN: GASTRIC BIOPSY GROSS DESCRIPTION: Antral biopsy Received in formalin is a segment of ortiz tissue 0.3 cm. Submitted in toto. (1 ns, 1) JCK/SHERMAN Disclaimer: The following statement applies to all immunohistochemistry, in situ hybridization, molecular studies, and immunofluorescence testing. The use of one or more reagents in the above tests is regulated as an analyte specific reagent (ASR). These tests were developed and their performance characteristics determined by the clinical laboratories of [facility]. They have not been cleared by the US Food and Drug Administration (FDA). The FDA has determined that such clearance or approval is not necessary. All the above immunostains were performed on paraffin embedded tissue. Appropriate positive and negative controls (where applicable) were run in parallel with the patient's specimen; these controls showed expected staining pattern, with acceptable intensity of staining. Immunohistochemical assays have not been validated on decalcified tissues. Results should be interpreted with caution given the raised possibility of false negativity on decalcified specimens. Professional Performing Location: [place] [address]. DEPARTMENT OF PATHOLOGY AND LABORATORY MEDICINE [place], [place] [address] Performed By: #### CHRISSY #### Performing Lab is in report ALLERGIES ALLERGIES DATE TYPE / CODE NAME / CODE REACTION SEVERITY SOURCE 08/28/2014 Environ/420 SEASONAL ITCHING [facility] [id number](SN ALLERGIES [facility]) Repository ENCOUNTERS ENCOUNTERS ADMIT/DISCHARGE ACCOUNT NUMBER ADMITTING ENCOUNTER LOCATION SOURCE CLASS 01/31/2018 [id number] [facility] Repository 01/24/2018 [id number] [facility] ding:BFHLAB Repository 11/04/2017 [id number] [facility] Repository 11/02/2017 [id number] Ambulatory [facility] Repository 10/24/2017 [id number] [facility] ding:BFHLAB Repository 10/11/2017/10/13/19 [id number] Ambulatory [address] Repository 10/11/2017/10/12/[id number] Repository 09/28/2017 [id number] [facility] Repository 09/20/2017 [id number] Inpatient [facility] Encounter [id number]: System [id number]: Repository [id number] 09/13/2017 [id number] Ambulatory [facility] Repository 08/31/2017 [id number] [facility] Repository 08/31/2017 [id number] [facility] Repository 07/22/2017 [id number] [facility] Repository 06/01/2017 [id number] [facility] Repository 05/18/2017 [id number] [facility] Repository 05/04/2017 [id number] [facility] Repository 05/04/2017 [id number] [facility] Rep[facility] 04/27/2017 [id number] [facility] Repository 04/06/2017 [id number] Ambulatory [facility] Repository 03/23/2017 [id number] [facility] Repository 03/23/2017 [id number] Ambulatory [facility] Repository 03/22/2017 [id number] Ambulatory [facility] Repository 03/16/2017 [id number] Ambulatory [facility] Repository 03/11/2017 [id number] Ambulatory [facility] Repository 03/09/2017 [id number] Ambulatory [facility] Repository PAYERS PAYERS ENCOUNTER GUARANTOR PAYER SUBSCRIBER SOURCE 01/31/2018 Hailee S Primary Hailee S [facility] SchenDOB: Insurance:CignaPolicy SchenDOB: System Number: Effective [id number] [address]: [place], [place] [address]Pwk: () 01/24/2018 Hailee Primary Hailee Brennon [id number] Insurance:CIGNAPolicy SchenDOB[place] [facility] [place]: [id number] [place] [id number] Repository [address]Xrr: (513) Date:1423-80-76[address]Z [phone] () [id number], [place] [address]SP: 01/24/2018 Secondary NOT GIVENUNK Brennon Insurance:SELF PAY [facility] Number: Effective Repository Date:2018-01-24 11/04/2017 Hailee S Primary Hailee S [facility] SchenDOB: Insurance:CignaPolicy SchenDOB: System Number: Effective [id number] [address]: [place], [place] [address]Foa: () 11/02/2017 Hailee S Primary Hailee S [facility] SchenDOB: Insurance:CignaPolicy SchenDOB: System Number: Effective [id number] [address]ository [address]: [place], [place] [address]Hbq: () 10/24/2017 Hailee Primary Hailee [place] [id number] Insurance:CIGNAPolicy SchenDOB: Community [address] Number: [id number] [id number] Repository [address]Fxf: (685) Date:[id number] [phone] () [id number], [place] [address]QC: 10/24/2017 Secondary NOT GIVENUNK Brennon Insurance:SELF PAY [facility] Number: Effective Repository Date:2017-10-24 09/28/2017 Hailee S Primary Hailee S [facility] SchenDOB: Insurance:CignaPolicy SchenDOB: System Number: Effective [id number] [address]: [place], [place] [address]Zhk: () 09/20/2017 Hailee S Primary Hailee S [facility] SchenDOB: Insurance:CignaPolicy SchenDOB: System Number: Effective [id number] [address]: [place], [place] [address]Pgy: () 09/13/2017 Hailee S Primary Hailee S [facility] SchenDOB: Insurance:CignaPolicy SchenDOB: System Number: Effective [id number] [address]: [place], [place] [address]Phw: () 08/31/2017 Hailee S Primary Hailee S [facility] SchenDOB: Insurance:CignaPolicy SchenDOB: System Number: Effective [id number] [address]ository [address]: [place] [address] 08/31/2017 Hailee S Primary Hailee S [facility] SchenDOB: Insurance:CignaPolicy SchenDOB: System Number: Effective [id number] [address]ository [address]: [place] [address] 07/22/2017 Hailee S Primary Hailee S [facility] SchenDOB: Insurance:Self SchenDOB: System PayPolicy Number: [id number] [address]ository [address] Effective Date: [place] [address] 06/01/2017 Hailee S Primary Hailee S [facility] SchenDOB: Insurance:CignaPolicy SchenDOB: System Number: Effective [id number] [address]: [place], [place] [address]Euw: () 05/18/2017 Hailee S Primary Hailee S [facility] SchenDOB: Insurance:CignaPolicy SchenDOB: System Number: Effective [id number] [address]: [place], [place] [address]Opv: () 05/04/2017 Hailee S Primary Hailee S [facility] SchenDOB: Insurance:CignaPolicy SchenDOB: System Number: Effective [id number] [address]: [place], [place] [address]Khf: () 05/04/2017 Hailee S Primary Hailee S [facility] SchenDOB: Insurance:CignaPolicy SchenDOB: System Number: Effective [id number] [address] [address] [facility] [place] [address]Qgb: () 04/27/2017 Hailee S Primary Hailee S [facility] SchenDOB: Insurance:CignaPolicy SchenDOB: System Number: Effective [id number] [address]: [place], [place] [address]Uze: () 04/06/2017 Hailee S Primary Hailee S [facility] SchenDOB: Insurance:CignaPolicy SchenDOB: System Number: Effective [id number] [address]ository [address]: [place] [address]Wbu: () 03/23/2017 Hailee S Primary [facility] SchenDOB: Insurance:CignaPolicy SchenDOB: System Number: Effective [id number] [address]: [place] [address]Qvx: () 03/23/2017 Hailee S Primary [facility] SchenDOB: Insurance:CignaPolicy SchenDOB: System Number: Effective [id number] [address]: [place] [address]Ztu: () 03/22/2017 Hailee S [facility] SchenDOB: Insurance:CignaPolicy SchenDOB: System Number: Effective [id number] [address]: [place] [address]Yri: () 03/16/2017 Hailee S [facility] SchenDOB: Insurance:Self SchenDOB: System PayPolicy Number: [id number] [address] Effective Date: [place] [address]Hjo: () 03/11/2017 Hailee S Primary [facility] SchenDOB: Insurance:CignaPolicy SchenDOB: System Number: Effective [id number] [address]: [place] [address]Btn: () 03/09/2017 Hailee S Primary [facility] SchenDOB: Insurance:CignaPolicy SchenDOB: System Number: Effective [id number] [address]: [place] [address]Bec: ()
== END ==
PROVIDERS: Family Provider Family Medicine; PCP Family Medicine; Referring Provider Registered Nurse Nephrology; Visit Provider Registered Nurse Nephrology
DX: K21.9 Gastro-esophageal reflux disease without esophagitis (principal); E61.7 Deficiency of multiple nutrient elements; E66.01 Morbid (severe) obesity due to excess calories; Z68.35 Body mass index [BMI] 35.0-35.9, adult
CPT/HCPCS: 36415; 80053; 82607; 82746; 83540; 83735; 84630; 85027

== ENCOUNTER → 2018-04-03 13:22 | Outpatient (CLI) | payer OTHER, SELFPAY ==
[2018-04-03 15:28] LABS: Hematocrit 41.5 % (37-47); Hemoglobin 13.8 g/dl (12.0-15.0); Mean Corp Hgb Conc 33.3 g/gl (32-36); Mean Corpuscular Hgb 32.5 pg (27.0-32.0); Mean Corpuscular Volume 97.6 fL (81-99); Mean Platelet Vol. 11.7 fl (6.2-12.0); Platelet Count 169 K/mm3 (150-450); RBC Distribution Width CV 12.5 % (11.6-14.6); RBC Distribution Width SD 43.5 fl (35.1-43.9); Red Blood Count 4.25 M/mm3 (4.2-5.4); White Blood Count 5.9 K/mm3 (4.4-11.0)
[2018-04-03 15:29] LABS: Scan Indicated on CBC? Y/N NO
[2018-04-03 16:08] LABS: Vitamin B12 695 pg/mL (211-911); Vitamin D,25 Hydroxy 47.4 ng/mL (29.95-100.01)
[2018-04-03 16:20] LABS: Cholesterol 169 mg/dL (200); Ferritin 136 ng/mL (8-252); High Density Lipoprotein 59 mg/dL; Iron 79 ug/dL (50-170); Triglycerides 141 mg/dL; Very Low Density Lipoprotein 28 mg/dL (5-40)
[2018-04-06 08:17] LABS: Zinc, Plasma or Serum 62 ug/dL (56-134)
== END ==
PROVIDERS: Family Provider Family Medicine; PCP Family Medicine; Referring Provider Registered Nurse Nephrology; Visit Provider Registered Nurse Nephrology
DX: E61.7 Deficiency of multiple nutrient elements (principal); R06.02 Shortness of breath; K21.9 Gastro-esophageal reflux disease without esophagitis; E66.01 Morbid (severe) obesity due to excess calories
CPT/HCPCS: 36415; 80061; 82306; 82607; 82728; 82746; 83540; 83735; 84630; 85027

== ENCOUNTER → 2018-10-13 09:21 | Outpatient (CLI) | payer OTHER, SELFPAY ==
--- NOTE | 2018-10-13 09:55 | BI_ITS ---
MAMMOGRAPHY - BILATERAL SCREENING REASON FOR EXAM: Female, 43 years old. Routine annual screening examination. PERTINENT HISTORY: Non-contributory. TECHNIQUE: Digital bilateral breast shanae (3D mammographic acquisition) in the CC and MLO projections. 2-D mediolateral oblique (MLO) and craniocaudad (CC) views of both breasts were obtained. CAD: Full Field Digital Mammography with Computer Added Detection was performed. COMPARISON: Comparison is made with prior ocular examination dated October 11, 2017. FINDINGS: Breast Composition: There are scattered areas of fibroglandular density. There are no dominant masses or suspicious calcifications. No other significant abnormalities are identified. There has been no significant change since the prior study. BI/SCREEN MAMM (CAD) W/SHANAE BILAT IMPRESSION: Stable bilateral screening mammogram. Yearly follow-up mammogram recommended. (A) ASSESSMENT CATEGORY: BIRADS Category 1: Negative. A letter regarding these results will be sent to the patient by the facility within 30 days. Approximately 10% of breast cancers are not detected by mammography. A normal mammogram should not delay biopsy of a clinically suspicious abnormality. [id number] Electronically Signed: Stefan Pickett, at 11:24 EDT , Service support ,
[2018-10-13 12:13] LABS: Hematocrit 43.9 % (37-47); Hemoglobin 14.8 g/dL (12.0-15.0); Mean Corp Hgb Conc 33.7 g/dL (32-36); Mean Corpuscular Hgb 32.6 pg (27.0-32.0); Mean Corpuscular Volume 96.7 fL (81-99); Mean Platelet Vol. 10.8 fl (6.2-12.0); Platelet Count 164 K/mm3 (150-450); RBC Distribution Width CV 11.9 % (11.6-14.6); RBC Distribution Width SD 42.3 fl (35.1-43.9); Red Blood Count 4.54 M/mm3 (4.2-5.4); White Blood Count 7.6 K/mm3 (4.4-11.0)
[2018-10-13 12:49] LABS: Vitamin B12 551 pg/mL (211-911); Vitamin D,25 Hydroxy 63.5 ng/mL (29.95-100.01)
[2018-10-13 13:06] LABS: ALB/GLOB Ratio 0.9 RATIO (0.9-2.4); AST(SGOT) 20 U/L (15-37); Alanine Aminotransfer ALT/SGPT 17 U/L (13-56); Albumin, Serum 3.6 g/dL (3.2-5.0); Alkaline Phosphatase 56 U/L (45-117); Anion Gap 6 (5-15); BUN 22 mg/dL (7-18); BUN/Creat Ratio 20.2 RATIO (10-20); Calcium,Total 9.1 mg/dL (8.5-10.1); Chloride 106 mmol/L (98-107); Cholesterol 158 mg/dL (200); Creatinine, Serum 1.09 mg/dL (0.55-1.02); EST Glomerular Filtration Rate 58 mL/min (>60); Est Glom Filt Rate - Afr Amer 70 mL/min (>60); Ferritin 173 ng/mL (8-252); Globulin 3.9 g/dL (2.2-4.2); Glucose 81 mg/dL (74-106); High Density Lipoprotein 69 mg/dL; Iron 103 ug/dL (50-170); Potassium 4.3 mmol/L (3.5-5.1); Protein, Total 7.5 g/dL (6.4-8.2); Sodium Level 140 mmol/L (136-145); Triglycerides 98 mg/dL; Very Low Density Lipoprotein 20 mg/dL (5-40)
[2018-10-19 12:54] LABS: HPV APTIMA, High Risk Negative (Negative)
== END ==
PROVIDERS: Registered Nurse Nephrology; Family Provider Family Medicine; PCP Family Medicine; Referring Provider Nurse Practitioner Women's Health; Visit Provider Nurse Practitioner Women's Health
DX: Z12.31 Encounter for screening mammogram for malignant neoplasm of breast (principal); Z12.4 Encounter for screening for malignant neoplasm of cervix; E61.7 Deficiency of multiple nutrient elements; K21.9 Gastro-esophageal reflux disease without esophagitis; E66.01 Morbid (severe) obesity due to excess calories; Z68.29 Body mass index [BMI] 29.0-29.9, adult; Z78.9 Other specified health status
CPT/HCPCS: 36415; 77063; 77067; 80053; 80061; 82306; 82607; 82728; 82746; 83540; 83735; 84425; 84630; 85027; 87624; 88175; G0145

== ENCOUNTER → 2018-10-30 13:13 | Outpatient (CLI) | payer OTHER, SELFPAY ==
[2018-10-13 10:35] VITALS: BMI 27.1
[2018-10-30 13:43] LABS: Anion Gap 8 (5-15); BUN 20 mg/dL (7-18); BUN/Creat Ratio 18.5 RATIO (10-20); Calcium,Total 8.8 mg/dL (8.5-10.1); Chloride 106 mmol/L (98-107); Creatinine, Serum 1.08 mg/dL (0.55-1.02); EST Glomerular Filtration Rate 59 mL/min (>60); Est Glom Filt Rate - Afr Amer 71 mL/min (>60); Glucose 88 mg/dL (74-106); Potassium 4.2 mmol/L (3.5-5.1); Sodium Level 142 mmol/L (136-145)
== END ==
PROVIDERS: Registered Nurse Nephrology; Family Provider Family Medicine; PCP Family Medicine; Referring Provider Family Medicine; Visit Provider Family Medicine
DX: K90.9 Intestinal malabsorption, unspecified (principal)
CPT/HCPCS: 36415; 80048

== ENCOUNTER → 2019-03-13 09:38 | Outpatient (CLI) | payer OTHER, SELFPAY ==
[2018-10-13 10:35] VITALS: BMI 27.1
[2019-03-13 10:17] LABS: Hemoglobin 13.8 g/dL (12.0-15.0); Mean Corp Hgb Conc 33.7 g/dL (32-36); Mean Corpuscular Volume 95.1 fL (81-99); Mean Platelet Vol. 10.1 fl (6.2-12.0); Platelet Count 158 K/mm3 (150-450); RBC Distribution Width CV 11.9 % (11.6-14.6); RBC Distribution Width SD 41.2 fl (35.1-43.9); Red Blood Count 4.31 M/mm3 (4.2-5.4); White Blood Count 5.6 K/mm3 (4.4-11.0)
[2019-03-13 11:00] LABS: Vitamin B12 490 pg/mL (211-911); Vitamin D,25 Hydroxy 50.8 ng/mL (29.95-100.01)
[2019-03-13 11:29] LABS: ALB/GLOB Ratio 0.9 RATIO (0.9-2.4); AST(SGOT) 19 U/L (15-37); Alanine Aminotransfer ALT/SGPT 14 U/L (13-56); Albumin, Serum 3.6 g/dL (3.2-5.0); Alkaline Phosphatase 50 U/L (45-117); Anion Gap 4 (5-15); BUN 16 mg/dL (7-18); Chloride 104 mmol/L (98-107); Cholesterol 161 mg/dL (200); EST Glomerular Filtration Rate 64 mL/min (>60); Est Glom Filt Rate - Afr Amer 78 mL/min (>60); Ferritin 177 ng/mL (8-252); Globulin 3.8 g/dL (2.2-4.2); Glucose 80 mg/dL (74-106); High Density Lipoprotein 75 mg/dL; Iron 131 ug/dL (50-170); Magnesium 2.2 mg/dL (1.6-2.6); Potassium 4.2 mmol/L (3.5-5.1); Protein, Total 7.4 g/dL (6.4-8.2); Sodium Level 137 mmol/L (136-145); Triglycerides 81 mg/dL; Very Low Density Lipoprotein 16 mg/dL (5-40)
[2019-03-15 11:16] LABS: Zinc, Plasma or Serum 79 ug/dL (56-134)
== END ==
LOC: PAVLAB 09:48
PROVIDERS: PCP Family Medicine
DX: K90.9 Intestinal malabsorption, unspecified (principal); E61.7 Deficiency of multiple nutrient elements
CPT/HCPCS: 36415; 80053; 80061; 82306; 82607; 82728; 82746; 83540; 83735; 84630; 85027

== ENCOUNTER → 2019-09-11 09:36 | Outpatient (CLI) | payer OTHER, SELFPAY ==
[2018-10-13 10:35] VITALS: BMI 27.1
[2019-09-11 10:08] LABS: Hematocrit 41.3 % (37-47); Hemoglobin 14.1 g/dL (12.0-15.0); Mean Corp Hgb Conc 34.1 g/dL (32-36); Mean Corpuscular Hgb 33.5 pg (27.0-32.0); Mean Corpuscular Volume 98.1 fL (81-99); Mean Platelet Vol. 10.9 fl (6.2-12.0); Platelet Count 159 K/mm3 (150-450); RBC Distribution Width CV 11.9 % (11.6-14.6); RBC Distribution Width SD 42.3 fl (35.1-43.9); Red Blood Count 4.21 M/mm3 (4.2-5.4); White Blood Count 4.7 K/mm3 (4.4-11.0)
[2019-09-11 10:25] LABS: Vitamin B12 740 pg/mL (211-911); Vitamin D,25 Hydroxy 95.9 ng/mL
[2019-09-11 11:04] LABS: AST(SGOT) 17 U/L (15-37); Alanine Aminotransfer ALT/SGPT 15 U/L (13-56); Albumin, Serum 3.6 g/dL (3.2-5.0); Alkaline Phosphatase 45 U/L (45-117); Anion Gap 5 (5-15); BUN 15 mg/dL (7-18); BUN/Creat Ratio 14.7 RATIO (10-20); Calcium,Total 8.7 mg/dL (8.5-10.1); Chloride 108 mmol/L (98-107); Cholesterol 150 mg/dL (200); Creatinine, Serum 1.02 mg/dL (0.55-1.02); EST Glomerular Filtration Rate 63 mL/min (>60); Est Glom Filt Rate - Afr Amer 76 mL/min (>60); Ferritin 181 ng/mL (8-252); Globulin 3.5 g/dL (2.2-4.2); Glucose 75 mg/dL (74-106); High Density Lipoprotein 65 mg/dL; Iron 98 ug/dL (50-170); Magnesium 2.1 mg/dL (1.6-2.6); Potassium 3.8 mmol/L (3.5-5.1); Protein, Total 7.1 g/dL (6.4-8.2); Sodium Level 141 mmol/L (136-145); Triglycerides 63 mg/dL; Very Low Density Lipoprotein 13 mg/dL (5-40)
[2019-09-14 07:07] LABS: Zinc, WHOLE BLOOD 689 ug/dL (440-860)
[2019-09-14 10:53] LABS: Vitamin B1, Thiamine 139.1 nmol/L (66.5-200.0)
== END ==
PROVIDERS: PCP Family Medicine
DX: E61.7 Deficiency of multiple nutrient elements (principal)
CPT/HCPCS: 36415; 80053; 80061; 82306; 82607; 82728; 82746; 83540; 83735; 84425; 84630; 85027

== ENCOUNTER → 2019-11-14 10:23 | Outpatient (CLI) | payer OTHER, SELFPAY ==
[2018-10-13 10:35] VITALS: BMI 27.1
[2019-11-14 10:16] VITALS: BMI 27.1
--- NOTE | 2019-11-14 10:25 | BI_ITS ---
MAMMOGRAPHY - BILATERAL SCREENING REASON FOR EXAM: Female, 44 years old. Routine annual screening examination. PERTINENT HISTORY: Non-contributory. TECHNIQUE: Digital bilateral breast shanae (3D mammographic acquisition) in the CC and MLO projections. 2-D mediolateral oblique (MLO) and craniocaudad (CC) views of both breasts were obtained. CAD: Full Field Digital Mammography with Computer Added Detection was performed. COMPARISON: Comparison is made with prior study dated 10/13/2018. FINDINGS: Breast Composition: There are scattered areas of fibroglandular density. There are no dominant masses or suspicious calcifications. No other significant abnormalities are identified. There has been no significant change since the prior study. BI/SCREEN MAMM (CAD) W/SHANAE BILAT IMPRESSION: Stable bilateral screening mammogram. Yearly follow-up mammogram recommended. (A) ASSESSMENT CATEGORY: BIRADS Category 1: Negative. A letter regarding these results will be sent to the patient by the facility within 30 days. Approximately 10% of breast cancers are not detected by mammography. A normal mammogram should not delay biopsy of a clinically suspicious abnormality. [id number] Electronically Signed: Stefan Pickett, at 11:28 EDT , Service support ,
== END ==
PROVIDERS: PCP Family Medicine; Referring Provider Nurse Practitioner Women's Health; Visit Provider Nurse Practitioner Women's Health
DX: Z12.31 Encounter for screening mammogram for malignant neoplasm of breast (principal)
CPT/HCPCS: 77063; 77067

== ENCOUNTER → 2019-12-20 16:15 | Outpatient (CLI) | payer OTHER, SELFPAY ==
[2019-11-14 10:16] VITALS: BMI 27.1
[2019-12-20 16:58] LABS: Vitamin D,25 Hydroxy 50.2 ng/mL
== END ==
PROVIDERS: PCP Family Medicine; Referring Provider Registered Nurse Nephrology; Visit Provider Registered Nurse Nephrology
DX: E55.9 Vitamin D deficiency, unspecified (principal)
CPT/HCPCS: 36415; 82306

== ENCOUNTER → 2020-10-23 08:54 | Outpatient (CLI) | payer OTHER, SELFPAY ==
[2020-10-23 09:33] LABS: Hematocrit 39.5 % (37-47); Hemoglobin 13.7 g/dL (12.0-15.0); Mean Corp Hgb Conc 34.7 g/dL (32-36); Mean Corpuscular Hgb 33.1 pg (27.0-32.0); Mean Corpuscular Volume 95.4 fL (81-99); Mean Platelet Vol. 10.5 fl (6.2-12.0); Platelet Count 162 K/mm3 (150-450); RBC Distribution Width CV 11.9 % (11.6-14.6); RBC Distribution Width SD 40.9 fl (35.1-43.9); Red Blood Count 4.14 M/mm3 (4.2-5.4); White Blood Count 5.4 K/mm3 (4.4-11.0)
[2020-10-23 10:26] LABS: ALB/GLOB Ratio 0.8 RATIO (0.9-2.4); AST(SGOT) 14 U/L (15-37); Alanine Aminotransfer ALT/SGPT 14 U/L (13-56); Albumin, Serum 3.4 g/dL (3.2-5.0); Alkaline Phosphatase 50 U/L (45-117); Anion Gap 3 (5-15); BUN 10 mg/dL (7-18); BUN/Creat Ratio 10.6 RATIO (10-20); Calcium,Total 9.1 mg/dL (8.5-10.1); Chloride 107 mmol/L (98-107); Cholesterol 150 mg/dL (200); Creatinine, Serum 0.94 mg/dL (0.55-1.02); EST Glomerular Filtration Rate 68 mL/min (>60); Est Glom Filt Rate - Afr Amer 82 mL/min (>60); Ferritin 190 ng/mL (8-252); Globulin 4.1 g/dL (2.2-4.2); Glucose 84 mg/dL (74-106); High Density Lipoprotein 73 mg/dL; Iron 105 ug/dL (50-170); Magnesium 2.1 mg/dL (1.6-2.6); Potassium 3.6 mmol/L (3.5-5.1); Protein, Total 7.5 g/dL (6.4-8.2); Sodium Level 138 mmol/L (136-145); Triglycerides 106 mg/dL; Very Low Density Lipoprotein 21 mg/dL (5-40)
[2020-10-23 11:01] LABS: Vitamin B12 596 pg/mL (211-911); Vitamin D,25 Hydroxy 67.4 ng/mL
[2020-10-30 16:09] LABS: Vitamin B1, Thiamine 147.3 nmol/L (66.5-200.0)
[2020-10-30 20:54] LABS: Zinc, Plasma or Serum 99 ug/dL (44-115)
== END ==
PROVIDERS: PCP Family Medicine
DX: R10.13 Epigastric pain (principal); E61.7 Deficiency of multiple nutrient elements; E66.01 Morbid (severe) obesity due to excess calories
CPT/HCPCS: 36415; 80053; 80061; 82306; 82607; 82728; 82746; 83540; 83735; 84425; 84630; 85027

== ENCOUNTER → 2020-11-19 13:12 | Outpatient (CLI) | payer OTHER, SELFPAY ==
--- NOTE | 2020-11-19 13:15 | BI_ITS ---
MAMMOGRAPHY - BILATERAL SCREENING 3-D TOMOSYNTHESIS REASON FOR EXAM: Female, 45 years old. breast cancer screening PERTINENT HISTORY: No significant family history. TECHNIQUE: 2-D mammograms and 3-D Tomosynthesis of the breast (s) were performed. CAD was performed. COMPARISON: 11/14/2019 FINDINGS: The breast composition is composed of scattered fibroglandular density. Scattered benign calcifications are seen. No dense spiculated masses or suspicious microcalcifications are identified. No architectural distortion is identified. There is no skin thickening or retraction. There has been no significant change since the prior study. BI/SCRN MAMM (CAD)W/SHANAE BILAT IMPRESSION: No mammographic signs of malignancy. Routine yearly mammograms recommended. ASSESSMENT CATEGORY: BIRADS Category 1: Negative. A letter regarding these results will be sent to the patient by the facility within 30 days. FOLLOW UP RECOMMENDATION: Yearly follow up mammogram recommended. (A) Approximately 10% of breast cancers are not detected by mammography. A normal mammogram should not delay biopsy of a clinically suspicious abnormality. Electronically Signed: Cesar Chong MD at 14:12 EDT Tel , Service support ,
== END ==
PROVIDERS: PCP Family Medicine; Referring Provider Nurse Practitioner Women's Health; Visit Provider Nurse Practitioner Women's Health
DX: Z12.31 Encounter for screening mammogram for malignant neoplasm of breast (principal)
CPT/HCPCS: 77063; 77067

== ENCOUNTER → 2021-12-14 | Outpatient (CLI) | payer BC, SELFPAY ==
--- NOTE | 2021-12-14 13:37 | BI_ITS ---
MAMMOGRAPHY - BILATERAL SCREENING REASON FOR EXAM: Female, 46 years old. Routine annual screening examination. PERTINENT HISTORY: Non-contributory. TECHNIQUE: Digital bilateral breast shanae (3D mammographic acquisition) in the CC and MLO projections. 2-D mediolateral oblique (MLO) and craniocaudad (CC) views of both breasts were obtained. CAD: Full Field Digital Mammography with Computer Added Detection was performed. COMPARISON: Comparison is made with prior study 11/19/2020 and 11/14/2019. FINDINGS: Breast Composition: There are scattered areas of fibroglandular density. There are no dominant masses or suspicious calcifications. No other significant abnormalities are identified. There has been no significant change since the prior study. BI/SCRN MAMM (CAD)W/SHANAE BILAT IMPRESSION: Stable bilateral screening mammogram. Yearly follow-up mammogram recommended. (A) ASSESSMENT CATEGORY: BIRADS Category 1: Negative. A letter regarding these results will be sent to the patient by the facility within 30 days. Approximately 10% of breast cancers are not detected by mammography. A normal mammogram should not delay biopsy of a clinically suspicious abnormality. [id number] Electronically Signed: Stefan Pickett MD at 14:58 EDT ,
== END | disposition home or self-care (01) ==
LOC: OPBI 13:36
PROVIDERS: PCP Family Medicine; Visit Provider Nurse Practitioner Women's Health
DX: Z12.31 Encounter for screening mammogram for malignant neoplasm of breast (principal)
CPT/HCPCS: 77063; 77067

== ENCOUNTER → 2022-11-12 | Outpatient (CLI) | payer BC, SELFPAY ==
[2022-11-12 10:38] LABS: Absolute Lymphocyte Count 1.78 X10^3/uL (0.83-4.51); Absolute Neutrophil Count 4.1 X10^3/uL (2.0-7.7); Basophil# 0.03 X10^3/uL; Basophil% 0.5 % (0-1); Eosinophil# 0.11 X10^3/uL; Eosinophils% 1.7 % (0-5); Hemoglobin 14.4 g/dL (12.0-15.0); Lymphocyte # 1.78 X10^3/ul (0.83-4.51); Lymphocyte % 26.9 % (19-41); Mean Corp Hgb Conc 33.5 g/dL (32-36); Mean Corpuscular Hgb 32.4 pg (27.0-32.0); Mean Corpuscular Volume 96.6 fL (81-99); Mean Platelet Vol. 10.6 fl (6.2-12.0); Monocyte# 0.55 X10^3/uL; Monocyte% 8.3 % (0-10); NRBC Flagged by Analyzer 0 % (0-5); Neutrophil # 4.13 X10^3/uL (2.7-7.7); Neutrophil % 62.4 % (47-70); POSITIVE COUNT YES; RBC Distribution Width SD 42.6 fl (35.1-43.9); Red Blood Count 4.45 M/mm3 (4.2-5.4); White Blood Count 6.6 K/mm3 (4.4-11.0)
[2022-11-12 11:12] LABS: Vitamin D,25 Hydroxy 81.8 ng/mL
[2022-11-12 11:19] LABS: Differential Indicated SCAN CRITERIA MET; Platelet Estimate ADEQUATE (ADEQ)
[2022-11-12 11:23] LABS: ALB/GLOB Ratio 0.9 RATIO (0.9-2.4); AST(SGOT) 26 U/L (15-37); Alanine Aminotransfer ALT/SGPT 19 U/L (13-56); Albumin, Serum 3.6 g/dL (3.2-5.0); Alkaline Phosphatase 55 U/L (45-117); Anion Gap 6 (5-15); BUN 13 mg/dL (7-18); BUN/Creat Ratio 13.1 RATIO (10-20); Chloride 107 mmol/L (98-107); Cholesterol 164 mg/dL (200); EST Glomerular Filtration Rate 63 mL/min (>60); Est Glom Filt Rate - Afr Amer 77 mL/min (>60); Globulin 3.9 g/dL (2.2-4.2); Glucose 87 mg/dL (74-106); High Density Lipoprotein 62 mg/dL; Potassium 4.4 mmol/L (3.5-5.1); Protein, Total 7.5 g/dL (6.4-8.2); Sodium Level 135 mmol/L (136-145); Triglycerides 135 mg/dL; Very Low Density Lipoprotein 27 mg/dL (5-40)
== END | disposition home or self-care (01) ==
LOC: LAB 10:01
PROVIDERS: PCP Nurse Practitioner Family; Referring Provider Nurse Practitioner Family; Visit Provider Nurse Practitioner Family
DX: Z00.01 Encounter for general adult medical examination with abnormal findings (principal); E55.9 Vitamin D deficiency, unspecified; E78.5 Hyperlipidemia, unspecified
CPT/HCPCS: 36415; 80053; 80061; 82306; 85025

== ENCOUNTER → 2022-12-20 | Outpatient (CLI) | payer BC, SELFPAY ==
--- NOTE | 2022-12-20 10:07 | BI_ITS ---
MAMMOGRAPHY - BILATERAL SCREENING REASON FOR EXAM: Female, 47 years old. Routine annual screening examination. PERTINENT HISTORY: Non-contributory. TECHNIQUE: Digital bilateral breast shanae (3D mammographic acquisition) in the CC and MLO projections. 2-D mediolateral oblique (MLO) and craniocaudad (CC) views of both breasts were obtained. CAD: Full Field Digital Mammography with Computer Added Detection was performed. COMPARISON: Comparison is made with prior study December 14, 2021 and November 19, 2020. FINDINGS: Breast Composition: There are scattered areas of fibroglandular density. There are no dominant masses or suspicious calcifications. Stable small benign appearing bilateral axillary lymph nodes. No other significant abnormalities are identified. There has been no significant change since the prior study. BI/SCRN MAMM (CAD)W/SHANAE BILAT IMPRESSION: Stable bilateral screening mammogram. Yearly follow-up mammogram recommended. (A) ASSESSMENT CATEGORY: BIRADS Category 2: Benign. A letter regarding these results will be sent to the patient by the facility within 30 days. Approximately 10% of breast cancers are not detected by mammography. A normal mammogram should not delay biopsy of a clinically suspicious abnormality. [id number] Electronically Signed: Stefan Pickett MD at 12:45 EST ,
== END | disposition home or self-care (01) ==
LOC: OPBI 10:06
PROVIDERS: PCP Nurse Practitioner Family; Referring Provider Nurse Practitioner Women's Health; Visit Provider Nurse Practitioner Women's Health
DX: Z12.31 Encounter for screening mammogram for malignant neoplasm of breast (principal)
CPT/HCPCS: 77063; 77067

== ENCOUNTER 2023-03-07 08:27 | Day surgery (SDC) | payer BC, SELFPAY ==
--- NOTE | 2023-03-07 08:33 | PCM.HP.STD ---
HPI - General General Date of Admission: 03/07/23 Date of Service: 03/07/23 Chief Complaint: Screening colonoscopy HPI Narrative HAILEE DIXON, is a 47 F who presents today for screening colonoscopy. She has no significant past medical history. She gets occasional heartburn but does not need to take medicine for it every day. She has no family history of colon cancer or colon polyps. Overall she is in very good health. [facility] Medical History Asthma Gastric reflux History of IBS Hyperlipidemia IBS (irritable bowel syndrome) Non-smoker Seasonal allergies Home Medications cetirizine 10 mg capsule (Zyrtec) 10 mg PO DAILY 10/13/18 [History Last Taken Unknown] cholecalciferol (vitamin D3) 125 mcg (5,000 unit) capsule 4,000 unit PO DAILY 10/13/18 [History Last Taken Unknown] cyanocobalamin (vitamin B-12) 250 mcg tablet (Vitamin B-12) 250 mcg PO QWEEK 10/13/18 [History Last Taken Unknown] flaxseed oil 1,000 mg capsule 1,000 mg PO DAILY 10/13/18 [History Last Taken 01/20/23] fluticasone 100 mcg-salmeterol 50 mcg/dose blistr powdr for inhalation (Advair Diskus) 1 puff inhalation DAILY 10/13/18 [History Last Taken Unknown] albuterol sulfate 90 mcg/actuation breath activated powder inhaler 1 inh inhalation PRN ASTHMA 11/14/19 [History Last Taken Unknown] calcium citrate 760 mg calcium/3.5 gram oral granules 500 mg PO TID 11/14/19 [History Last Taken Unknown] ipratropium bromide 21 mcg (0.03 %) nasal spray 2 spray intranasal BID PRN allergy symptoms 11/14/19 [History Last Taken Unknown] melatonin 3 mg capsule 3 mg PO HS PRN sleep 11/19/20 [History Last Taken Unknown] Saccharomyces boulardii 250 mg capsule (Daily Probiotic (S. boulardii)) 250 mg PO DAILY 11/19/22 [History Last Taken Unknown] dicyclomine 10 mg capsule 10 mg PO BID PRN abdominal pain 11/19/22 [History Last Taken Unknown] docusate sodium 50 mg capsule (Stool Softener) 50 mg PO DAILY PRN constipation 11/19/22 [History Last Taken Unknown] famotidine 10 mg tablet 10 mg PO DAILY PRN heartburn 11/19/22 [History Last Taken Unknown] meqxseahxpdw-Ok-czxv-minerals 18 mg-0.4 mg tablet 1 tab PO DAILY 11/19/22 [History Last Taken Unknown] drospirenone 3 mg-ethinyl estradiol 0.02 mg tablet 1 tab PO DAILY #84 tabs 12/20/22 [Rx Last Taken Unknown] Allergy/AdvReac Type Severity Reaction Status Date / Time animal dander Allergy Asthma Verified 03/01/23 12:03 house dust Allergy Anaphylaxis Verified 03/01/23 12:03 mold Allergy Asthma Verified 03/01/23 12:03 pollen extracts Allergy Asthma Verified 03/01/23 12:03 Family History Mother T-cell lymphoma Grandmother Heart disease Diabetes Grandfather Cancer stomach cancer- Family hx of ALS (amyotrophic lateral sclerosis) Surgical History Bariatric surgery status History of tonsillectomy and adenoidectomy Hx of colonoscopy [place] teeth extracted Social History Smoking Status: Never smoker alcohol intake: current details: social substance use type: does not use caffeine: No what type of physical activity do you participate in: walking seatbelt use: always do you feel safe at home: Yes additional social history: single- works at [employer] ROS Unobtainable: other Constitutional Constitutional: Denies fatigue, fever(s), poor appetite, weight gain or weight loss ENT HEENT: Denies mouth lesions Cardiovascular Cardiovascular: Denies abdominal bloating, abdominal edema or abdominal pain Respiratory/Chest Respiratory/Chest: Denies change in mental status, change in phlegm color, chest congestion or chest tightness Gastrointestinal Gastrointestinal: Denies belching, bloating, change in bowel habits, change in stool character, chewing difficulty, coffee ground emesis, constipation, cramping, diarrhea, dyspepsia, dysphagia, early satiety, excessive flatus, fecal incontinence, heartburn, hematemesis, hematochezia, hemorrhoids, loose stools, melena, nausea, odynophagia, rectal bleeding, tenesmus, vomiting or weight changes Genitourinary Genitourinary: Denies abdominal discomfort, burning urination or itching Musculoskeletal Musculoskeletal: Reports as per HPI; Denies muscle weakness or myalgias Integumentary Integumentary: Denies jaundice Neurologic Neurologic: Denies lack of coordination or weakness Psychiatric Psychiatric: Denies confusion, depression, memory loss, mood swings, paranoia or suicidal ideation Endocrine Endocrinology: Denies systems reviewed and no addt'l complaints, except as documented Hematologic/Lymphatic Hematologic/Lymphatic: Denies anemia, easy bleeding, easy bruising or lymphadenopathy Allergic/Immunologic Allergic/Immunologic: Denies systems reviewed and no addt'l complaints, except as documented Physical Exam Const alert General Appearance: cooperative Orientation / Consciousness: oriented to person HEENT hearing grossly normal bilaterally Head and Scalp: normal to inspection Face and Sinus: face symmetric Nose: external nose normal Mouth: oral and palatal mucosa normal Eyes conjunctivae normal General Eye: normal appearance of both eyes Neck full ROM General: normal visual inspection Lymph Lymphatic: no lymphadenopathy noted Chest inspection of chest normal and palpation of chest normal Chest: symmetrical chest wall rise Resp normal respiratory effort Effort and Inspection: able to speak in complete sentences Cardio regular rate GI non-distended Percussion: normal to percussion Rectal Exam: deferred Neuro Speech: speech normal Gait (Neuro): normal gait Assessment & Plan Assessment/Plan (1) Encounter for screening for malignant neoplasm of colon: PLAN: She was explained alternatives, risk, benefits including not withstanding bleeding, infection, sepsis, perforation, need for return to . She will have an ASA of 2.
[2023-03-07 08:48] VITALS: BP 128/93; PULSE 108; RESP 16; TEMP 35.9; O2SAT 100; BMI 35.0
[2023-03-07] MEDS: Lactated Ringers 1,000 ML 15 ML IV (09:02)
[2023-03-07 09:48] VITALS: BP 128/93; BP 93/79; PULSE 88; RESP 16; TEMP 36.6; O2SAT 100
--- NOTE | 2023-03-07 09:50 | OP.CCLET_ITS ---
03/07/2023 Milena Sauer Re : Colonoscopy procedure for Ibeth Foote Dear Ed This procedure was performed on Tuesday, March 07, 2023. My impressions and recommendations are as follows: Impressions : - The entire examined colon is normal. - No specimens collected. Recommendations : - Discharge patient to home. - Resume previous diet. - Continue present medications. - Repeat colonoscopy in 10 years for screening purposes. My findings are described in the full procedure note, which is enclosed. If I can be of further assistance, please feel free to contact me at . Sincerely, Mannie Haynes, DO 03/07/2023 9:49:26 AM This report has been signed electronically.
--- NOTE | 2023-03-07 09:50 | OP.COLON_ITS ---
Patient Name: Ibeth Foote Procedure Date: 03/07/2023 9:18 AM Date of : 1975 Age: 47 Procedure: Colonoscopy Indications: Screening for colorectal malignant neoplasm Providers: Mannie Haynes DO Medicines: Monitored Anesthesia Care Patient Profile: This is a 47 year old female. Refer to note in patient chart for documentation of history and physical. Last Colonoscopy: none. The patient's first colonoscopy is today. Complications: No immediate complications. Procedure: Pre-Anesthesia Assessment: - Prior to the procedure, a History and Physical was performed, and patient medications and allergies were reviewed. The patient is competent. The risks and benefits of the procedure and the sedation options and risks were discussed with the patient. All questions were answered and informed consent was obtained. Patient identification and proposed procedure were verified by the physician in the pre-procedure area. Mental Status Examination: alert and oriented. Airway Examination: normal oropharyngeal airway and neck mobility. Respiratory Examination: clear to auscultation. CV Examination: normal. Prophylactic Antibiotics: The patient does not require prophylactic antibiotics. Prior Anticoagulants: The patient has taken no anticoagulant or antiplatelet agents. ASA Grade Assessment: II - A patient with mild systemic disease. After reviewing the risks and benefits, the patient was deemed in satisfactory condition to undergo the procedure. The anesthesia plan was to use monitored anesthesia care (MAC). Immediately prior to administration of medications, the patient was re-assessed for adequacy to receive sedatives. The heart rate, respiratory rate, oxygen saturations, blood pressure, adequacy of pulmonary ventilation, and response to care were monitored throughout the procedure. The physical status of the patient was re-assessed after the procedure. After I obtained informed consent, the scope was passed under direct vision. Throughout the procedure, the patient's blood pressure, pulse, and oxygen saturations were monitored continuously. The pediatric colonoscope was introduced through the anus and advanced to the cecum, identified by appendiceal orifice and ileocecal valve. The colonoscopy was performed without difficulty. Scope In: 9:32:57 AM Scope Withdrawal Time 0 hours 8 minutes 7 seconds Scope Out: 9:43:46 AM Total Procedure Duration Time 0 hours 10 minutes 49 seconds Findings: The perianal and digital rectal examinations were normal. The colon (entire examined portion) appeared normal. No additional abnormalities were found on retroflexion. Impression: - The entire examined colon is normal. - No specimens collected. Recommendation: - Discharge patient to home. - Resume previous diet. - Continue present medications. - Repeat colonoscopy in 10 years for screening purposes. Procedure Code(s): --- Professional --- G0121, Colorectal cancer screening; colonoscopy on individual not meeting criteria for high risk CPT copyright 2021 [employer]. All rights reserved. The codes documented in this report are preliminary and upon complaint adjuster review may be revised to meet current compliance requirements. Mannie Haynes, 03/07/2023 9:49:26 AM This report has been signed electronically. Number of Addenda: 0 Note Initiated On: 03/07/2023 9:18 AM
[2023-03-07 09:55] VITALS: BP 108/49; BP 128/93; PULSE 78; RESP 16; O2SAT 100
[2023-03-07 10:00] VITALS: BP 114/73; BP 128/93; PULSE 83; RESP 16; O2SAT 100
[2023-03-07 10:03] VITALS: BP 114/73; BP 128/93; PULSE 75; RESP 16; TEMP 36.9; O2SAT 100
[2023-03-07 10:17] VITALS: BP 128/93
== END 2023-03-07 10:26 | disposition home or self-care (01) ==
LOC: EN 08:28 → AC 08:30
PROVIDERS: PCP Nurse Practitioner Family; Referring Provider Nurse Practitioner Family; Visit Provider Internal Medicine Gastroenterology
PROC: 0DJD8ZZ Inspection of Lower Intestinal Tract, Via Natural or Artificial Opening Endoscopic (ICD-10-PCS; CPT 45378; principal; 2023-03-07 09:25)
DX: Z12.11 Encounter for screening for malignant neoplasm of colon (principal); E78.5 Hyperlipidemia, unspecified; Z79.51 Long term (current) use of inhaled steroids; J45.909 Unspecified asthma, uncomplicated; Z87.19 Personal history of other diseases of the digestive system
CPT/HCPCS: 45378; J7120; J2405

== ENCOUNTER → 2023-07-14 | Outpatient (CLI) | payer BC, SELFPAY ==
[2023-07-14 11:18] LABS: Hematocrit 43.1 % (37-47); Hemoglobin 14.5 g/dL (12.0-15.0); Mean Corp Hgb Conc 33.6 g/dL (32-36); Mean Corpuscular Hgb 32.5 pg (27.0-32.0); Mean Corpuscular Volume 96.6 fL (81-99); Mean Platelet Vol. 10.1 fl (6.2-12.0); Platelet Count 201 K/mm3 (150-450); RBC Distribution Width SD 43.4 fl (35.1-43.9); Red Blood Count 4.46 M/mm3 (4.2-5.4); White Blood Count 8.2 K/mm3 (4.4-11.0)
[2023-07-14 11:33] LABS: Anion Gap 4 (5-15); BUN 17 mg/dL (7-18); BUN/Creat Ratio 16.7 RATIO (10-20); Calcium,Total 9.5 mg/dL (8.5-10.1); Chloride 103 mmol/L (98-107); Creatinine, Serum 1.02 mg/dL (0.55-1.02); EST Glomerular Filtration Rate 61 mL/min (>60); Est Glom Filt Rate - Afr Amer 74 mL/min (>60); Glucose 84 mg/dL (74-106); Sodium Level 136 mmol/L (136-145)
== END | disposition home or self-care (01) ==
LOC: PAVLAB 11:03
PROVIDERS: PCP Nurse Practitioner Family; Referring Provider Plastic Surgery; Visit Provider Plastic Surgery
DX: L90.9 Atrophic disorder of skin, unspecified (principal); E65 Localized adiposity
CPT/HCPCS: 36415; 80048; 85027

== ENCOUNTER 2023-08-12 05:56 | Day surgery (SDC) | payer SELFPAY, BC ==
[2023-08-12] VITALS (11 sets, daily range): BP systolic 101–127; BP diastolic 67–90; PULSE 71–102; RESP 16; TEMP 36.1–36.7; O2SAT 96–100; BMI 34.6
[2023-08-12 06:20] LABS: Internal QC Validated? YES +Cl - CLEAR BKGD; Pregnancy, Urine Negative Negative
[2023-08-12] MEDS: Lactated Ringers 1,000 ML 15 ML IV ×2 (06:34→13:57)
--- NOTE | 2023-08-12 07:25 | PCM.PRE.AN2 ---
ASA Classification* ASA Classification ASA Classification: 2 Assessment & Plan Anesthesia* Anesthesia Assessment Anesthesia Assessment: Discussed sedation and/or anesthesia options, risks, benefits, and alternatives with patient/parents/legal guardian/POA. Questions invited. The patient/parents/legal guardian/POA seems to understand and agrees to proceed with anesthesia plan. Reviewed the physical assessment, medical history, allergy history and patient home medications list prior to surgery/procedure/anesthetic and documented any changes. Performed airway and anesthesia risk assessments. Anesthesia Type Anesthesia Type: General (see written pre anesthesia record for full assessment) Anesthesia Focused Assessment* Temperature: 97 F Pulse Rate: 102 Blood Pressure: 119/74 Respiratory Rate: 16 Pulse Ox: 98 Airway Assessment Mouth opens: >3 cm Mallampati Score: III Focused Labs Anesthesia Preop lab: CBC WBC 8.2 K/mm3 (4.4-11.0) 07/14/23 11:05 RBC 4.46 M/mm3 (4.2-5.4) 07/14/23 11:05 Hgb 14.5 g/dL (12.0-15.0) 07/14/23 11:05 Hct 43.1 % (37-47) 07/14/23 11:05 Plt Count 201 K/mm3 (150-450) 07/14/23 11:05 CHEMISTRY Potassium 4.0 mmol/L (3.5-5.1) 07/14/23 11:05 Sodium 136 mmol/L (136-145) 07/14/23 11:05 Magnesium 2.1 mg/dL (1.6-2.6) 10/23/20 09:15 BUN 17 mg/dL (7-18) 07/14/23 11:05 Creatinine 1.02 mg/dL (0.55-1.02) 07/14/23 11:05 Glucose 84 mg/dL (74-106) 07/14/23 11:05 TSH 1.55 uIU/mL (0.358-3.74) 07/03/15 10:35 COAG Urine Test Negative Negative 08/12/23 06:13 Pre-Assessment Diagnosis/Proposed Procedure Planned Operative Procedure(s): ABDOMINOPLASTY Anesthesia History Anesthesia History - coloring room worker: Anesthesia History - coloring room worker Hx Hospitalization No 07/12/23 15:29 Any Problems With Anesthesia No 07/12/23 15:29 Cholinesterase deficiency No 07/12/23 15:29 You/Your Family Experience No 07/12/23 15:29 fever (hyperthermia) with Relationship Recent Exposure to Contagious No 08/12/23 06:23 Disease Does patient have nerve No 07/12/23 15:29 stimulator Patient instructed to have device shut off --Does patient have Pacemaker No 08/12/23 06:23 or ICD? When Was Last Pacemaker Check QUESTION #4 FULL TEXT: You/Your Family Experience fever (hyperthermia) with Anesthesia Last Oral Intake Last Oral intake: Last Oral Intake NPO since 00:00 08/12/23 06:23 Meds taken in AM with sips of water? Meds patient instructed to take am of surgery PONV PONV - coloring room worker: PONV - coloring room worker Female Yes 07/12/23 15:29 HX of Motion Sickness Yes 07/12/23 15:29 HX of N/V After Surgery No 07/12/23 15:29 Non-Smoker Yes 07/12/23 15:29 Duration of Surgery greater Yes 07/12/23 15:29 than 60 minutes Number of Risk Factors 4 07/12/23 15:29 PONV Score Severe Risk 07/12/23 15:29 Height & Weight Height & Weight: Anesthesia: Height & Weight Height 5 ft 9.5 in 08/12/23 06:23 Weight: 107.955 kg 08/12/23 06:23 Body Mass Index (BMI) 34.6 08/12/23 06:23 Respiratory Assessment Respiratory Assessment - coloring room worker: Respiratory Tract Infection Hx - coloring room worker Hx Respiratory Tract Infection No 07/12/23 15:29 STOP Sleep Apnea STOP Sleep Apnea - coloring room worker: STOP Sleep Apnea - coloring room worker Hx Hypertension No 07/12/23 15:29 Hx Sleep Apnea No 07/12/23 15:29 CPAP BIPAP Do you snore loudly (louder Yes 07/12/23 15:29 than talking or can be heard Do you often feel tired/ No 07/12/23 15:29 fatigued/ sleepy during daytime? Has anyone observed you stop No 07/12/23 15:29 breathing during sleep? STOP Results Negative 07/12/23 15:29 QUESTION #5 FULL TEXT : Do you snore loudly (louder than talking or can be heard through closed doors)? Tobacco Use History Tobacco Use History - coloring room worker: Tobacco Use History - coloring room worker Tobacco Use Smoking Status Never smoker 07/12/23 15:29 Hx Tobacco Use No 07/12/23 15:29 Years Smoking Packs Smoked per Day Smoking Cessation Date was within the last 15 years Hx Smoking Cessation Date Hx Smoking Cessation Counseling Hematologic Medial History Hematologic Hx - coloring room worker: Hematologic Medical Hx - disease case manager Hx of Blood Transfusion No 07/12/23 15:29 Hx of Transfusion in last 3 No 07/12/23 15:29 Months Date of Last Transfusion (if within last 3 months) Ever experience any problems No 07/12/23 15:29 with transfusion(s)? Specify any problems Hx of Preganancy in last 3 No 07/12/23 15:29 Months Nurse Filling Out Transfusion DSCHRIBER 07/12/23 15:29 & Questions: Date: 07/12/23 07/12/23 15:29 Time: 15:31 07/12/23 15:29 Patient unable to answer at this time (ie. confused, unrespo /Reproduction History /Reproductive History - coloring room worker: /Reproductive Hx- coloring room worker Hx Now No 07/12/23 15:29 Gestational Age (in weeks): EDC: Hx Hx Para Hx Section SAB No 07/12/23 15:29 Active Medications Active Medications: Current Medications Generic Name Dose Route Start Last Admin Trade Name Freq PRN Reason Stop Dose Admin Cefazolin Sodium 3 gm/ Sodium 115 mls @ 150 mls/hr 08/12/23 07:30 Chloride IV 08/12/23 08:15 PREOP ONE Lactated Ringer's 1,000 mls @ 15 mls/hr 08/12/23 06:15 08/12/23 06:34 IV 15 mls/hr .Q48H DEWEY Administration PFSH Medical History Wears glasses Alcohol use Injury of head and neck Shortness of breath on exertion History of IBS Gastric reflux Non-smoker Hyperlipidemia Asthma Seasonal allergies Home Medications ?Medication ?Instructions ?Recorded ?Last Taken ?Type cetirizine 10 mg capsule (Zyrtec) 10 mg PO DAILY 10/13/18 Unknown History cholecalciferol (vitamin D3) 125 4,000 unit PO DAILY 10/13/18 Unknown History mcg (5,000 unit) capsule cyanocobalamin (vitamin B-12) 250 1,000 mcg PO QWEEK 10/13/18 Unknown History mcg tablet (Vitamin B-12) flaxseed oil 1,000 mg capsule 1,000 mg PO DAILY 10/13/18 01/20/23 History fluticasone 100 mcg-salmeterol 50 1 puff inhalation DAILY 10/13/18 Unknown History mcg/dose blistr powdr for inhalation (Advair Diskus) albuterol sulfate 90 mcg/actuation 1 inh inhalation PRN ASTHMA 11/14/19 Unknown History breath activated powder inhaler ipratropium bromide 21 mcg (0.03 2 spray intranasal BID PRN allergy 11/14/19 08/12/23 History %) nasal spray symptoms melatonin 3 mg capsule 3 mg PO HS PRN sleep 11/19/20 Unknown History Saccharomyces boulardii 250 mg 250 mg PO DAILY 11/19/22 Unknown History capsule (Daily Probiotic (S. boulardii)) dicyclomine 10 mg capsule 10 mg PO BID PRN abdominal pain 11/19/22 Unknown History docusate sodium 50 mg capsule 50 mg PO DAILY PRN constipation 11/19/22 Unknown History (Stool Softener) famotidine 10 mg tablet 10 mg PO DAILY PRN heartburn 11/19/22 Unknown History pedliqhnmkrg-Re-jate-minerals 18 1 tab PO DAILY 11/19/22 Unknown History mg-0.4 mg tablet drospirenone 3 mg-ethinyl 1 tab PO DAILY #84 tabs 12/20/22 Unknown Rx estradiol 0.02 mg tablet calcium citrate 500 mg (2,376 mg) 500 mg PO TID 07/12/23 Unknown History effervescent tablet cephalexin 500 mg capsule 500 mg PO BID #14 caps 08/03/23 08/11/23 Rx Allergy/AdvReac Type Severity Reaction Status Date / Time Seasonal Allergies: Uncoded Allergy Mild Itching Verified 08/12/23 06:21 animal dander Allergy Asthma Verified 08/12/23 06:21 house dust Allergy Anaphylaxis Verified 08/12/23 06:21 mold Allergy Asthma Verified 08/12/23 06:21 pollen extracts Allergy Asthma Verified 06/28/24 06:21 Family History Mother T-cell lymphoma Grandmother Heart disease Diabetes Grandfather Cancer stomach cancer- Acute Crohn's disease Sister Thyroid disorder mike Surgical History Gibbs teeth extracted Hx of colonoscopy History of tonsillectomy and adenoidectomy Bariatric surgery status Social History Smoking Status: Never smoker alcohol intake: current details: social substance use type: does not use caffeine: No what type of physical activity do you participate in: walking seatbelt use: always do you feel safe at home: Yes additional social history: single- works at [employer] pt denies smoking, denies vaping, denies edibles, denies marijuana use, denies aspirin, denies using ibuprofen Review of Systems (Anesthesia) ROS Narrative System reviewed and no additional complaints, except as documented.
--- NOTE | 2023-08-12 07:27 | PCM.HP.BLA ---
History and Physical Date of Admission: 08/12/23 The patient is examined and there are no changes to the H&P dated 08/02/23. Pt with abdominal pannus and lipodystrophy. Informed consent for abdominoplasty is obtained. Assessment & Plan Assessment/Plan (1) Encounter for cosmetic surgery: PLAN: Plan Pt for abdominoplasty.
[2023-08-12] MEDS: Cefazolin 3 GM in 0.9% Normal Saline (100mL Bag) 100 ML IV (07:45)
[2023-08-12] MEDS: Methylene Blue 1% 100 MG/10 ML VIAL (08:15)
[2023-08-12] MEDS: Gentamicin 80 MG/2 ML Vial (08:29)
[2023-08-12] MEDS: Bacitracin 500 UNITS/GM PACKET (11:34)
[2023-08-12] MEDS: BACITRACIN/POLYMYXIN B 15 GM Tube 1 APPLIC (11:36)
[2023-08-12] MEDS: Bupivacaine 0.25% 30 ML Vial (13:02)
--- NOTE | 2023-08-12 13:18 | DCINST_ITS ---
Discharge Instructions Dressing / Incision Additional Dressing/Incision Instructions:: Follow instructions given in the office. Keep your back elevated (recliner position). Follow Up Care Please Follow Up With: Ann Fagan MD Test Results: Test results from this visit will be discussed in further detail at your follow- up appointment, if applicable. Discharge Plan Admission Attending Provider: Ann Fagan Primary Care Provider: Claudia Ward Instructions Print Language: Hebrew Discharge Orders/Prescriptions Prescriptions: No Action fluticasone propion-salmeterol [Advair Diskus] 100-50 mcg/dose blister with device 1 puff INHALATION DAILY Zyrtec 10 mg capsule 10 mg PO DAILY cholecalciferol (vitamin D3) 5,000 unit capsule 4,000 unit PO DAILY cyanocobalamin (vitamin B-12) [Vitamin B-12] 250 mcg tablet 1,000 mcg PO QWEEK flaxseed oil 1,000 mg capsule 1,000 mg PO DAILY dicyclomine 10 mg capsule 10 mg PO BID PRN (Reason: abdominal pain) ipratropium bromide 0.03 % spray,non-aerosol 2 spray INTRANASAL BID PRN (Reason: allergy symptoms) Rx Instructions: administer into each nostril albuterol sulfate 90 mcg/actuation aerosol powdr breath activated 1 inh INHALATION PRN melatonin 3 mg capsule 3 mg PO HS PRN (Reason: sleep) Stool Softener 50 mg capsule 50 mg PO DAILY PRN (Reason: constipation) drospirenone-ethinyl estradiol 3-0.02 mg tablet 1 tab PO DAILY Qty: 84 4RF ajrfctjlknop-Wn-pkiy-minerals 18-0.4 mg tablet 1 tab PO DAILY Saccharomyces boulardii [Daily Probiotic (S. boulardii)] 250 mg capsule 250 mg PO DAILY famotidine 10 mg tablet 10 mg PO DAILY PRN (Reason: heartburn) cephalexin 500 mg capsule 500 mg PO BID Qty: 14 0RF calcium citrate 500 mg tablet, effervescent 500 mg PO TID Referrals / Follow Up: Claudia Ward, ELECTR[employer] SUPERINTENDENT-C [Primary Care Provider] - Disposition Disposition (needs filled in before D/C Order can be placed): Home, Self Care
--- NOTE | 2023-08-12 13:21 | PCM.OPRPT ---
Problems Associated Problem List Diagnoses (1) Encounter for cosmetic surgery: Report of Operation Date of Procedure: 08/12/23 Pre-Operative Diagnosis: Abdominal skin laxity Post-Operative Diagnosis: same Surgery/Procedure Performed:: Abdominoplasty including skin excision, muscle plication, and umbilical transposition Surgeon: Ann Fagan heel builder: LARON BLANCsolar technician Type of Anesthesia: General Drains: SHAYNA x 2 Estimated Blood Loss (mL): 50cc Description of Procedure: Ibeth presents for cosmetic improvement of her abdomen with abdominoplasty. The procedure been thoroughly reviewed with her including the expected pre-, intra-, postoperative course. The potential risk and complications of surgery were reviewed which include but are not exclusive of bleeding, infection, pain, numbness, asymmetry, scar tissue, skin necrosis, the need for further surgery, DVT, and even . She is marked in the preop holding area prior to surgery and an informed consent is obtained. Patient is aware that this is not a substitute for weight loss. The patient is brought to the operating room and placed under general anesthesia in supine position. Care is taken to pad all pressure points, insert a Lyn catheter, a warming blanket, and sequential compression stockings. The abdomen is prepped and draped in the usual sterile fashion. We initially began with incising the incision along the premarked line in the suprapubic area. The dissection carried down through the subcutaneous tissue until the muscular fascia was encountered. Dissection then continued cephalad to the umbilicus. The umbilicus is circumscribed and a cuff of adipose tissue was left around the umbilicus. Dissection then continues further cephalad to the xiphoid. Hemostasis is controlled with argon coagulation. Following this, the abdominal rectus abdominis muscles identified as is the diastases between them. This is marked with methylene blue. A plication from the xiphoid to the pubis is then performed using [id number] Nurolon sutures. Following this, running nylon suture is used to further reinforce this imbrication. The patient is then placed in a semi-Fowlers position and the skin for removal is demarcated. Following this, the skin is excised using the argon coagulation. Further refinements in the incisions are made. A stab incision is made beneath the lateral aspect of the incision and a SHAYNA drain is inserted bilaterally. These are anchored in place with a nylon suture. The umbilicus is tacked to the abdominal fascia to allow a natural imbrication of the umbilical stump. The incision is then closed in 3 layers using strata fix suture in the deep subcutaneous tissue the dermis and the skin in a subcuticular fashion. A 2.5 cm oval incision is made in the midline in the umbilicus is brought up through this incision and the imbricating suture is tied. The skin edges of the umbilicus are approximated with a running subcuticular Monocryl suture. Quarter percent plain Marcaine is injected along the incision and 10 cc were placed in each SHAYNA drain. The incisions are dressed with Xeroform and ABD gauze. She is placed in an abdominal binder. She tolerated the procedure well was taken to the recovery area in an awakening in stable condition. Needle and sponge counts are correct. Admit VTE Documentation VTE Present on Admission: Yes VTE Mechan Device Prophylaxis: SCD's
--- NOTE | 2023-08-12 13:27 | PCM.POST.ANE ---
Anesthesia: Postop Eval I Current Vital Signs Temperature: 98.1 F Pulse Rate: 90 Blood Pressure: 124/90 Respiratory Rate: 16 Pulse Ox: 100 Oxygen Delivery Method: Simple Mask Oxygen Flow Rate (L/min): 6 Assessment Airway patent: Yes Spontaneous unlabored respirations: Yes Mental status: Awake and Calm nausea: No Vomiting: No Anesthesia Complication: No Fluid Hydration Crystalloid volume administer (ml): 1,800 Total IV fluid infused: 1,800 Progress Note Anesthesia document: Postop Eval 1 completed: Yes
--- NOTE | 2023-08-12 16:25 | SUR.PHASEII ---
1615 Patient assisted up to bathroom , patient unable to void at this time. Patient assisted back to bed , c/o nausea, but better when lying down . Quease EASE given and cool wash cloth given.
--- NOTE | 2023-08-12 16:48 | POSTOPAN2_ITS ---
Anesthesia Postop Eval I Sum Postop Eval Completion status Anesthesia document: Postop Eval 1 completed: Yes Anesthesia Postop Eval I Summary Anesthesia Postop Eval I Summary: Anesthesia Postop Eval I: Assessment Summary Airway patent Yes 08/12/23 13:28 SALES AND MARKETING ENGINEER.SKOBY Spontaneous unlabored Yes 08/12/23 13:28 SALES AND MARKETING ENGINEER.YESICA respirations Mental status Awake,Calm 08/12/23 13:28 SALES AND MARKETING ENGINEER.SKOBY nausea No 08/12/23 13:28 SALES AND MARKETING ENGINEER.SKOBY Vomiting No 08/12/23 13:28 SALES AND MARKETING ENGINEER.NEEMAOBDana Anesthesia Postop Eval I: Fluid Summary Crystalloid volume administer 1,800 08/12/23 13:28 SALES AND MARKETING ENGINEER.SKOBY (ml) Colloids volume administered ( ml) Blood Product volume administered (ml) Total IV fluid infused 1,800 08/12/23 13:28 SALES AND MARKETING ENGINEER.NEEMAOBDana Anesthesia Postop Eval I: Summary Notes Anesthesia Complication No 08/12/23 13:28 SALES AND MARKETING ENGINEER.YESICA Anesthesia Complication Comment: Post-operative progress note Anesthesia: Postop Eval II Evaluation Mental status: Awake and Calm Pain Level: 3 nausea: No Vomiting: No Complications Anesthesia Complication: No
--- NOTE | 2023-08-12 16:48 | PCM.POSTANE2 ---
Anesthesia Postop Eval I Sum Postop Eval Completion status Anesthesia document: Postop Eval 1 completed: Yes Anesthesia Postop Eval I Summary Anesthesia Postop Eval I Summary: Anesthesia Postop Eval I: Assessment Summary Airway patent Yes 08/12/23 13:28 COMPUTATIONAL CHEMIST.SKOBY Spontaneous unlabored Yes 08/12/23 13:28 COMPUTATIONAL CHEMIST.YESICA respirations Mental status Awake,Calm 08/12/23 13:28 COMPUTATIONAL CHEMIST.SKOBY nausea No 08/12/23 13:28 COMPUTATIONAL CHEMIST.SKOBY Vomiting No 08/12/23 13:28 COMPUTATIONAL CHEMIST.NEEMAOBDana Anesthesia Postop Eval I: Fluid Summary Crystalloid volume administer 1,800 08/12/23 13:28 COMPUTATIONAL CHEMIST.SKOBY (ml) Colloids volume administered ( ml) Blood Product volume administered (ml) Total IV fluid infused 1,800 08/12/23 13:28 COMPUTATIONAL CHEMIST.NEEMAOBDana Anesthesia Postop Eval I: Summary Notes Anesthesia Complication No 08/12/23 13:28 COMPUTATIONAL CHEMIST.YESICA Anesthesia Complication Comment: Post-operative progress note Anesthesia: Postop Eval II Evaluation Mental status: Awake and Calm Pain Level: 3 nausea: No Vomiting: No Complications Anesthesia Complication: No
--- NOTE | 2023-08-12 17:30 | SUR.PHASEII ---
up to BR and voided lg amt w/o difficulty, pain tolerable, IV out and getting dressed and became nauseated rifting in emesis bag, no emesis. Contacted Dr Marx and new order for scop patch application and PO zofran x1 now. Pt agrees with plan of care, meds given and resting back in bed.
== END 2023-08-12 18:11 | disposition home or self-care (01) ==
LOC: SDC 05:58 → AC 06:00
PROVIDERS: Anesthesiology; PCP Nurse Practitioner Family; Referring Provider Plastic Surgery; Visit Provider Plastic Surgery
PROC: (CPT 15830; principal; 2023-08-12 07:15)
DX: L57.4 Cutis laxa senilis (principal); K21.9 Gastro-esophageal reflux disease without esophagitis; J45.909 Unspecified asthma, uncomplicated; Z79.51 Long term (current) use of inhaled steroids; Z79.899 Other long term (current) drug therapy
CPT/HCPCS: 15830; 15847; 00802; 81025; J7120; J2405

== ENCOUNTER → 2023-12-26 | Outpatient (CLI) | payer BC, SELFPAY ==
[2024-01-03 06:09] LABS: HPV APTIMA, High Risk Negative (Negative)
== END | disposition home or self-care (01) ==
PROVIDERS: PCP Nurse Practitioner Family; Referring Provider Nurse Practitioner Women's Health; Visit Provider Nurse Practitioner Women's Health
DX: Z12.31 Encounter for screening mammogram for malignant neoplasm of breast (principal); Z12.4 Encounter for screening for malignant neoplasm of cervix
CPT/HCPCS: 77063; 77067; 87624; 88175; G0145

== ENCOUNTER → 2024-01-23 | Outpatient (CLI) | payer BC, SELFPAY ==
[2024-01-23 11:59] LABS: Estradiol 221.1 pg/mL; Follicle Stimulating Hormone 6.7 mIU/mL; T4 Free Direct 0.95 ng/dL (0.76-1.46)
[2024-01-24 08:11] LABS: Thyroid Peroxidase AB 185 IU/mL (0-34)
== END | disposition home or self-care (01) ==
LOC: BWCLAB 09:37
PROVIDERS: PCP Nurse Practitioner Family; Referring Provider Nurse Practitioner Women's Health; Visit Provider Nurse Practitioner Women's Health
DX: Z13.29 Encounter for screening for other suspected endocrine disorder (principal); N95.1 Menopausal and female climacteric states
CPT/HCPCS: 36415; 82670; 83001; 84439; 84443; 86376

== ENCOUNTER → 2024-04-26 | Outpatient (CLI) | payer BC, SELFPAY ==
[2024-04-26 11:19] LABS: Free T3 3.1 pg/mL (2.18-3.98)
== END | disposition home or self-care (01) ==
PROVIDERS: PCP Nurse Practitioner Family; Referring Provider Nurse Practitioner Family; Visit Provider Nurse Practitioner Family
DX: E03.9 Hypothyroidism, unspecified (principal)
CPT/HCPCS: 36415; 84432; 84436; 84439; 84442; 84443; 84481; 86376; 86800

== ENCOUNTER → 2024-10-26 | Outpatient (CLI) | payer BC, SELFPAY ==
[2024-10-26 15:14] LABS: Free T3 2.9 pg/mL (2.18-3.98); T4 Total, Thyroxin 9.6 ug/dL (4.8-13.9)
== END | disposition home or self-care (01) ==
LOC: LAB 12:43
PROVIDERS: PCP Nurse Practitioner Family; Referring Provider Nurse Practitioner Family; Visit Provider Nurse Practitioner Family
DX: E03.9 Hypothyroidism, unspecified (principal)
CPT/HCPCS: 36415; 84432; 84436; 84439; 84442; 84443; 84481; 86376; 86800

== ENCOUNTER → 2024-12-27 | Outpatient (CLI) | payer BC, SELFPAY ==
--- NOTE | 2024-12-27 16:00 | BI_ITS ---
EXAM: SCRN MAMM (CAD)W/SHANAE BILAT DATE: 12/27/2024 CLINICAL HISTORY: F, Age 49 y/o , SCREEN FOR BREAST CANCER No family history. TECHNIQUE: Procedure Code: [id number] Modality: MG Procedure: SCRN MAMM (CAD)W/SHANAE BILAT COMPARISON: Prior exam(s) dated December 26, 2023.. FINDINGS: TISSUE DENSITY: There are scattered areas of fibroglandular density. Bilateral Breast Mammographic Findings: No significant masses, calcifications or other abnormalities are identified. No suspicious masses, areas of developing architectural distortion, or suspicious calcifications. There has been no significant interval change. BI/SCRN MAMM (CAD)W/SHANAE BILAT IMPRESSION: Stable bilateral screening mammogram. OVERALL FINAL ASSESSMENT BI-RADS 1: NEGATIVE. RECOMMENDATION: Routine annual follow-up in 1 Year Additional Recommendation none A letter with findings and recommendations will be mailed to the patient. Reading Location: [place] [id number]
== END | disposition home or self-care (01) ==
LOC: OPBI 15:46
PROVIDERS: PCP Nurse Practitioner Family; Referring Provider Nurse Practitioner Women's Health; Visit Provider Nurse Practitioner Women's Health
DX: Z12.31 Encounter for screening mammogram for malignant neoplasm of breast (principal)
CPT/HCPCS: 77063; 77067